=== PATIENT | male | born 1940 | race Caucasian/White ===

== ENCOUNTER 2016-10-17 10:34 | Inpatient (IN) | payer MEDICARE, BC ==
[~2016-10-17] VITALS: Ht 175.3 cm; Wt 76.9 kg
[2016-10-17] MEDS ORDERED: SOD CHLORIDE 0.9% 1,000 ML IV STA (11:26)
[2016-10-17] MEDS ORDERED: HYDROmorphONE 1 MG/ML SYG IV STA (11:26)
[2016-10-17] MEDS ORDERED: ONDANSETRON 4 MG INJ IV STA (11:26)
[2016-10-17 12:01] LABS: ADD SCAN DIFF NO
[2016-10-17 12:09] LABS: ABNORMAL IP MESSAGE 1; HEMATOCRIT 29.5 % (42.0-52.0); HEMOGLOBIN 9.6 g/dl (14.0-18.0); MEAN CORPUSCULAR HEMOGLOBIN 30.4 pg (29.0-33.0); MEAN CORPUSCULAR HGB CONC 32.5 g/dl (32.0-37.0); MEAN CORPUSCULAR VOLUME 93.4 fl (82.0-101.0); MEAN PLATELET VOLUME 10.3 fl (7.4-10.4); PLATELET COUNT 132 10^3/UL (140-415); RED BLOOD COUNT 3.16 10^6/ul (4.70-6.10); RED CELL DISTRIBUTION WIDTH 15.2 % (11.5-14.5)
[2016-10-17 12:22] LABS: ALBUMIN 4.4 g/dl (3.3-4.9); ALBUMIN/GLOBULIN RATIO 2.09; BILIRUBIN,INDIRECT 0.6 mg/dl (0-1.1); BILIRUBIN,TOTAL 0.6 mg/dl (0.2-1.3); CALCIUM 8.2 mg/dl (8.4-10.2); CREATININE 1.54 mg/dl (0.61-1.24); POTASSIUM 4.7 mmol/L (3.5-5.1); TOTAL PROTEIN 6.5 g/dl (6.1-8.1)
--- NOTE | 2016-10-17 13:09 | RADRPT ---
PROCEDURE: CT abdomen and pelvis without contrast. CLINICAL INDICATION: Abdominal Pain TECHNIQUE: CT scan of the abdomen and pelvis without contrast was performed and is reconstructed a t 2.5 mm contiguous axial intervals from the dome of the diaphragm to the inferior pubic rami.. The patient was scanned without intravenous contrast. Sagittal and coronal reformatted images were obt ained from the axial source images. The calculated radiation dose measures 853 mGy centimeters. The CTDI measures 814 mGy. COMPARISON: None. FINDINGS: The lung bases are clear of any infiltrate or nodule. No effusion is seen. There are coronary arter y calcifications. Noted is retrocrural adenopathy. The liver is of normal size, contour and attenuation with no mass or ductal dilatation. No gallston es are visualized. No splenic or adrenal abnormalities present. noted is peripancreatic adenopathy . There is a questionable mass in the tail of the pancreas on this limited precontrast exam. Kidneys are of normal size and contour. No calculus or masses seen. There is mild to moderate rig ht hydroureter nephrosis. The ureter appears to occlude on the superior aspect of the pelvis. No s tone is seen. The left ureter is of normal course and caliber with no stone. No bladder mass or st one is present. Prostate and seminal vesicles appear normal. There is no aneurysm. Calcified plaque is seen in the aorta and iliac arteries. Retroperitoneal ad enopathy is present. No bowel mass or obstruction is present. The appendix is normal. No phlegmon, ascites or pneumop eritoneum is visualized. A sub centimeter faint sclerotic lesion is seen in the posterior medial right ilium. Noted is ill-d efined sclerosis in the right L3 vertebral body. Cortical margins are intact. No fractures are vis ualized. Patient is status post left inguinal herniorrhaphy. IMPRESSION: Retrocrural, retroperitoneal and peripancreatic adenopathy. Question metastatic disease versus lymp briseyda. These nodes are amendable to CT guided biopsy if clinically indicated. Question mass tail of pancreas. Consider repeat thin section postcontrast CT for more definitive di agnosis. Mild to moderate right hydroureter nephrosis with ureteral obstruction superior pelvis. No stones v isualized. Consider postcontrast imaging for more definitive diagnosis. Ill-defined sclerosis L3 vertebral body. This is indeterminate for metastatic disease. Vascular calcifications. Status post left inguinal herniorrhaphy. .Ant Reyes MD, MD Date Time Electronically viewed and signed by .Ant Reyes MD, on 10/17/2016 13:08 .A/
[2016-10-17 13:13] LABS: ADD UMIC YES; UR BILIRUBIN (Dip) NEGATIVE (NEGATIVE); UR BLOOD (Dip) 2+ (NEGATIVE); UR CLARITY CLEAR (CLEAR); UR COLOR LT. YELLOW (YELLOW); UR GLUCOSE (Dip) NEGATIVE (NEGATIVE); UR KETONES (Dip) NEGATIVE (NEGATIVE); UR LEUKOCYTE ESTERASE (Dip) NEGATIVE (NEGATIVE); UR NITRITE (Dip) NEGATIVE (NEGATIVE); UR TOTAL PROTEIN (Dip) 1+ (NEGATIVE); UR UROBILINOGEN (Dip) 0.2 E.U./dL (0.1-1.0)
[2016-10-17] MEDS ORDERED: ATOR40TA68 PO (13:54)
[2016-10-17] MEDS ORDERED: AMLO5TAB4 PO (13:54)
[2016-10-17] MEDS ORDERED: ASPI-664 PO (13:56)
[2016-10-17] MEDS ORDERED: SERT-165 PO (13:56)
--- NOTE | 2016-10-17 14:00 | ERD ---
ER Documentation Chief Complaint Date/Time DATE: 10/17/16 TIME: 13:59 Chief Complaint ap x 1 week on chemo, had last one on monday HPI This is a 76-year-old male with a history of prostate cancer currently undergoing chemotherapy. His last chemotherapy was last week. The patient states that over the past 6 or 7 days the patient had a gradual worsening of pain in the mid abdominal epigastric region is worse after eating at times. He says the pain is constantly there and is starting to spread across the entire abdomen. He has no nausea vomiting but does have constipation no fever no back pain no dysuria no hematuria. Pain is described as crampy and dull at times. ROS All systems reviewed and are negative except as per history of present illness. Medications Home Meds Reported Medications Aspirin* (Aspirin* EC) 81 Mg Tablet.dr, 81 MG PO DAILY, TAB 10/17/16 Sertraline Hcl* (Sertraline Hcl*) 100 Mg Tablet, 100 MG PO DAILY, #30 TAB 10/17/16 Atorvastatin* (Atorvastatin*) 40 Mg Tablet, 40 MG PO QHS, #30 TAB 10/17/16 Amlodipine Besylate* (Norvasc*) 5 Mg Tablet, 5 MG PO DAILY, TAB 10/17/16 Allergies Allergies: Coded Allergies: No Known Allergy (Unverified , 10/17/16) PMhx/Soc Medical and Surgical Hx: pt denies Medical Hx, pt denies Surgical Hx Hx Miscellaneous Medical Probl: Yes (prostate cancer) Hx Alcohol Use: No Hx Substance Use: No Hx Tobacco Use: No Smoking Status: Unknown if ever smoked FmHx Family History: No coronary disease Physical Exam Vitals Vital Signs Date Time Temp Pulse Resp B/P Pulse Ox O2 Delivery O2 Flow Rate FiO2 10/17/16 13:06 80 17 151/72 100 Room Air 10/17/16 10:37 98.1 94 18 102/57 99 Physical Exam Const: Well-developed, well-nourished Head: Atraumatic, normocephalic Eyes: Normal Conjunctiva, PERRLA, EOMI, normal sclera, no nystagmus ENT: Normal External Ears, Nose and Mouth, moist mucus membranes. Neck: Full range of motion. No meningismus, no lymphadenopathy. Resp: Clear to auscultation bilaterally, no wheezing, rhonchi, rales Cardio: Regular rate and rhythm, no murmurs, S1 S2 present Abd: Soft, diffuse mild tenderness no rebound non distended. Normal bowel sounds, no guarding or rebound, no pulsitile abdominal masses or bruits Skin: No petechiae or rashes, no ecchymosis , no maculopapular rash Back: No midline or flank tenderness Ext: No cyanosis, or edema, FROM x 4, normal inspection, neurovascularly intact x 4 Neur: Awake and alert, STR 5/5 x 4, sensation intact x 4, no focal findings, cerebellum intact Psych: Normal Mood and Affect Result Diagram: 10/17/16 1141 10/17/16 1141 Results 24 hrs Laboratory Tests Test 10/17/16 11:41 10/17/16 13:00 White Blood Count 1.810^3/ul Red Blood Count 3.1610^6/ul Hemoglobin 9.6g/dl Hematocrit 29.5% Mean Corpuscular Volume 93.4fl Mean Corpuscular Hemoglobin 30.4pg Mean Corpuscular Hemoglobin Concent 32.5g/dl Red Cell Distribution Width 15.2% Platelet Count 05185^3/UL Mean Platelet Volume 10.3fl Neutrophils % 42.0% Band Neutrophils % 9.0% Lymphocytes % 34.0% Reactive Lymphocytes % 5.0% Monocytes % 7.0% Eosinophils % 2.0% Metamyelocytes % 1.0% Neutrophils # 0.810^3/ul Lymphocytes # 0.610^3/ul Monocytes # 0.110^3/ul Eosinophils # 0.010^3/ul Metamyelocytes # 0.0 Sodium Level 144mmol/L Potassium Level 4.7mmol/L Chloride Level 109mmol/L Carbon Dioxide Level 27mmol/L Anion Gap 13 Blood Urea Nitrogen 29mg/dl Creatinine 1.54mg/dl Glucose Level 121mg/dl Calcium Level 8.2mg/dl Total Bilirubin 0.6mg/dl Direct Bilirubin 0.00mg/dl Indirect Bilirubin 0.6mg/dl Aspartate Amino Transf (AST/SGOT) 19IU/L Alanine Aminotransferase (ALT/SGPT) 30IU/L Alkaline Phosphatase 106IU/L Total Protein 6.5g/dl Albumin 4.4g/dl Globulin 2.10g/dl Albumin/Globulin Ratio 2.09 Lipase 88U/L Urine Color LT. YELLOW Urine Clarity CLEAR Urine pH 7.0 Urine Specific [place] 1.010 Urine Ketones NEGATIVE Urine Nitrite NEGATIVE Urine Bilirubin NEGATIVE Urine Urobilinogen 0.2 E.U./dL Urine Leukocyte Esterase NEGATIVE Urine Microscopic RBC 5-10/HPF Urine Microscopic WBC 0-2/HPF Urine Hemoglobin 2+ Urine Glucose NEGATIVE% Urine Total Protein 1+ Current Medications Medications (Trade) Dose Ordered Sig/Abida Route PRN Reason Start Time Stop Time Status Last Admin Dose Admin Sodium Chloride (NS) 1,000 ml @ 1,000 mls/hr Q1H STAT IV 10/17/16 11:26 10/17/16 12:25 DC 10/17/16 11:58 Hydromorphone HCl (Dilaudid) 1 mg ONCE STAT IV 10/17/16 11:26 10/17/16 11:27 DC 10/17/16 11:58 Ondansetron HCl (Zofran Inj) 4 mg ONCE STAT IV 10/17/16 11:26 10/17/16 11:27 DC 10/17/16 11:58 Procedures/MDM PROCEDURE: CT abdomen and pelvis without contrast. CLINICAL INDICATION: Abdominal Pain TECHNIQUE: CT scan of the abdomen and pelvis without contrast was performed and is reconstructed at 2.5 mm contiguous axial intervals from the dome of the diaphragm to the inferior pubic rami.. The patient was scanned without intravenous contrast. Sagittal and coronal reformatted images were obtained from the axial source images. The calculated radiation dose measures 853 mGy centimeters. The CTDI measures 814 mGy. COMPARISON: None. FINDINGS: The lung bases are clear of any infiltrate or nodule. No effusion is seen. There are coronary artery calcifications. Noted is retrocrural adenopathy. The liver is of normal size, contour and attenuation with no mass or ductal dilatation. No gallstones are visualized. No splenic or adrenal abnormalities present. noted is peripancreatic adenopathy. There is a questionable mass in the tail of the pancreas on this limited precontrast exam. Kidneys are of normal size and contour. No calculus or masses seen. There is mild to moderate right hydroureter nephrosis. The ureter appears to occlude on the superior aspect of the pelvis. No stone is seen. The left ureter is of normal course and caliber with no stone. No bladder mass or stone is present. Prostate and seminal vesicles appear normal. There is no aneurysm. Calcified plaque is seen in the aorta and iliac arteries. Retroperitoneal adenopathy is present. No bowel mass or obstruction is present. The appendix is normal. No phlegmon , ascites or pneumoperitoneum is visualized. A sub centimeter faint sclerotic lesion is seen in the posterior medial right ilium. Noted is ill-defined sclerosis in the right L3 vertebral body. Cortical margins are intact. No fractures are visualized. Patient is status post left inguinal herniorrhaphy. IMPRESSION: Retrocrural, retroperitoneal and peripancreatic adenopathy. Question metastatic disease versus lymphoma. These nodes are amendable to CT guided biopsy if clinically indicated. Question mass tail of pancreas. Consider repeat thin section postcontrast CT for more definitive diagnosis. Mild to moderate right hydroureter nephrosis with ureteral obstruction superior pelvis. No stones visualized. Consider postcontrast imaging for more definitive diagnosis. Ill-defined sclerosis L3 vertebral body. This is indeterminate for metastatic disease. Vascular calcifications. Status post left inguinal herniorrhaphy. .Ant Reyes MD, MD Date Time Electronically viewed and signed by .Ant Reyes MD, MD on 10/17/2016 13: 08 .A/ CC: AVI SHELTON DO Spoke with Dr. Mathias of panel. The patient will be admitted due to absolute neutrophil count of 800. And is a infectious risk. We will admit for neutropenia precautions and to possibly get some Neupogen etc. Abdominal pain is likely due to the diffuse adenopathy Departure Diagnosis: Primary Impression: Neutropenia Neutropenia type: secondary to cancer chemotherapy Qualified Code: D70.1 - Chemotherapy-induced neutropenia Additional Impression: Abdominal pain Abdominal location: generalized Qualified Code: R10.84 - Generalized abdominal pain Condition: Stable AVI SHELTON DO Oct 17, 2016 14:00
[2016-10-17 14:40] LABS: LYMPHOCYTES # 0.6 10^3/ul (0.8-2.9); MONOCYTE # 0.1 10^3/ul (0.3-0.9); NEUTROPHIL # 0.8 10^3/ul (1.6-7.5)
[2016-10-17] MEDS ORDERED: ACETAMINOPHEN 325 MG TAB PO PRN ×2 (15:00→17:00)
[2016-10-17] MEDS ORDERED: ONDANSETRON 4 MG INJ IV PRN ×2 (15:00→17:00)
[2016-10-17 16:14] LABS: WHITE BLOOD COUNT 1.8 10^3/ul (4.8-10.8)
[2016-10-17 16:49] VITALS: Ht 175.3 cm; Wt 76.9 kg
[2016-10-17 16:50] VITALS: BP 159/70; PULSE 84
[2016-10-17] MEDS ORDERED: NACL 0.9% 3 ML SYG IV SCH (17:00)
[2016-10-17] MEDS ORDERED: FILGRASTIM 300 MCG INJ SC ONE (17:00)
[2016-10-17] MEDS ORDERED: hydrALAzine 20 MG INJ IV PRN (17:00)
[2016-10-17] MEDS ORDERED: BISACODYL (EC) 5 MG TAB PO PRN (17:00)
[2016-10-17] MEDS ORDERED: HYDROCODONE/APAP (5/325) TAB PO PRN (17:00)
[2016-10-17] MEDS ORDERED: MAGNESIUM HYDROXIDE 30ML CUP PO PRN (17:00)
[2016-10-17] MEDS: SOD CHLORIDE 0.9% 1,000 ML IV SCH (17:39)
--- NOTE | 2016-10-17 18:33 | HP ---
DATE OF ADMISSION: 10/17/2016 TIME OF EVALUATION: 1613. REASON FOR ADMISSION: Abdominal pain and pancytopenia. CONSULTANTS: ANGEL CHACKO MD, Urology. HISTORY OF PRESENT ILLNESS: This is a 76-year-old male with past medical history of essential hypertension, dyslipidemia, CAD status post coronary artery stenting and metastatic prostate cancer status post radiation therapy, currently undergoing chemotherapy with Dr. Moe Green in [place]. The patient got his last chemotherapy on 10/14/2016. The patient verbalized that he has been having abdominal pain for the past 10 days that became worse over the past 24 hours. The patient verbalized that he has not been taking any routine pain medications at home. The patient verbalized the pain location in the epigastric region and has been worse after eating at times. The patient also verbalized the pain is spreading all over the abdomen. The patient denied any vomiting. However, he complained of some nausea. The patient has been complaining of constipation. He denied any dysuria, hematuria. The patient denied any fevers or chills. The patient denied any urinary hesitancy or urgency. In the emergency room, the patient was noticed to have pancytopenia with WBC 1.8 , neutrophil count of only 0.8. The patient was noticed to have BUN and creatinine of 29 and 1.54 respectively. The patient's urinalysis showed 2+ hemoglobin and 1+ protein. The patient's abdominal CT scan showed retrocrural, retroperitoneal and pancreatic adenopathy with questionable pancreatic tail mass along with mild to moderate right hydroureteronephrosis with ureteral obstruction in the pelvis with no stones visualized. The patient was treated with IV analgesics, IV antiemetics along with IV fluids in the emergency room. PAST MEDICAL HISTORY: Essential hypertension, dyslipidemia, CAD status post coronary artery stenting and depression. PAST SURGICAL HISTORY: Denies, although the patient had a CT scan that shows status post left inguinal herniorrhaphy. HOME MEDICATIONS 1. Aspirin 81 mg p.o. daily. 2. Sertraline 100 mg p.o. daily. 3. Atorvastatin 40 mg p.o. at bedtime. 4. Amlodipine 5 mg p.o. daily. ALLERGIES: NO KNOWN DRUG ALLERGIES. SOCIAL HISTORY: The patient lives at home. Never smoker. Occasional alcohol use. Denies any drug use. REVIEW OF SYSTEMS: A 12-point review of systems were made and review of systems was negative other than what is mentioned in history of present illness. PHYSICAL EXAMINATION: VITAL SIGNS: Temperature 98.3, pulse rate 84, respiratory rate 70, blood pressure 159/70, oxygen saturation 98% on room air. GENERAL: This is a well-built, well-nourished 76-year-old male, lying in bed in no apparent distress. HEENT: Head normocephalic and atraumatic. Eyes: Anicteric sclerae. Conjunctivae clear. ENT: Nasal septum is midline. Oral mucosa is moist. NECK: Supple. No JVD noticed. RESPIRATORY: Bilaterally clear to auscultation. No adventitious breath sounds heard. No use of accessory muscles of respiration. CARDIAC: Regular rate and rhythm. S1, S2 heard. ABDOMEN: Soft. Diffuse tenderness. No rebound tenderness or guarding. Bowel sounds hypoactive in all 4 quadrants. GENITOURINARY: Deferred. EXTREMITIES: No cyanosis, no clubbing, no edema. Peripheral pulses palpable. NEUROLOGIC: The patient is awake, alert and oriented. Cranial nerves are grossly intact. LABORATORY AND DIAGNOSTIC DATA: WBC 1.8, hemoglobin 9.6, hematocrit 29.5, platelet count 132, bands 9%. Sodium 144, potassium 84.0, chloride 100, carbon dioxide 27, anion gap 13, BUN 29, creatinine 1.54, glucose 121, calcium 8.2, AST 19, ALT 30, alkaline phosphatase 106. Urinalysis: Urine nitrite negative, urine leukocyte esterase negative, urine hemoglobin 2+. Urine total protein 1+. CT scan of the abdomen and pelvis. Retrocrural, retroperitoneal and peripancreatic adenopathy. Questionable mass in the tail of the pancreas. Mild to moderate right hydroureter, nephrosis with ureteral obstruction. In the patient's pelvis, no stones visualized. Ill-defined sclerosis of L3 vertebral body. Vascular calcifications. Status post left inguinal herniorrhaphy. IMPRESSION: This is a 56-year-old male who came to the emergency room with a chief complaint of abdominal pain. He is currently undergoing chemotherapy for prostate cancer. He was found evidence of pancytopenia, along with acute kidney injury and mild to moderate right ureteral obstruction. He will be admitted here for further treatment and evaluation. ASSESSMENT AND PLAN: 1. Abdominal pain. Etiology unclear. Probably a combination of metastatic prostate cancer along with right ureteral obstruction evident on CT scan. The patient verbalized that he has not been on any routine pain medications at home. Hence, it is suspected that the right ureteral obstruction could be contributing to the patient's pain. The patient will be seen and evaluated by Urology. The patient was provided with adequate pain control. 2. Nonoliguric kidney injury. Unknown baseline creatinine. Most probably postobstructive secondary to ureteral obstruction evident on abdominal CT scan. The patient will be adequately hydrated. Nephrotoxic drugs will be avoided. 3. History of prostate cancer. The patient currently undergoing chemotherapy with Dr. Moe Green, phone number [phone]. 4. Pancytopenia with underlying severe neutropenia. The patient will be kept on reverse isolation. The patient will be provided with a single dose of Neupogen (colony stimulating factor). 6. Essential hypertension. The patient will be maintained on antihypertensives. The patient will also be started on p.r.n. antihypertensives for any systolic blood pressure readings greater than 160 mmHg. 7. Coronary artery disease, status post coronary artery stenting 8 years ago. The patient is currently on aspirin and statin. Plan. The patient will be admitted to inpatient medical/surgical floor. The patient will be started on a low cholesterol diet. The patient will be started on DVT prophylaxis and gastrointestinal prophylaxis. The patient will remain a FULL CODE. Activities will be as tolerated. The rest of the patient's management will be based on the clinical course, the results of diagnostic studies, and inputs from consultants. Based on the patient's clinical presentation, he most probably requires at least 1 midnight's stay for further management and evaluation of his clinical presentation. The case and management of this patient was fully discussed with Dr. Ortiz. ANDRESSA ORTIZ MD, AM/RICHA Conf#: [id number] DID#: [id number] TERESA
[2016-10-17] MEDS: HYDROmorphONE 1 MG/ML SYG IV PRN (19:03)
[2016-10-17] MEDS: POLYETHYLENE GLYCOL 17 GM PACKET PO SCH (20:48)
[2016-10-17] MEDS: FAMOTIDINE 20 MG TAB PO SCH (20:49)
[2016-10-17] MEDS: ATORVASTATIN 40 MG TAB PO SCH (20:51)
[2016-10-17] MEDS: HEPARIN 5,000 UNIT/0.5 ML VIAL SC SCH (20:51)
--- NOTE | 2016-10-17 21:20 | CONS ---
DATE OF ADMISSION: 10/17/2016 DATE OF CONSULTATION: 10/17/2016 REQUESTING PHYSICIAN: Dr. Ortiz and Osvaldo Olea NP HISTORY OF PRESENT ILLNESS: This is a nice 76-year-old male who unfortunately had metastatic prosta te cancer and presented to the emergency room at [facility] because of abdominal p ain and nausea, but there was no vomiting. A CT scan of the abdomen and pelvis that showed retroper itoneal adenopathy and right hydronephrosis with also right hydroureter in the proximal ureter. The distal ureter is not dilated. Therefore, a urological consultation was requested. The patient sta chencho that he had a prostate cancer diagnosed about 3 to [address] Ramos[address] Then at that ti nv, he was treated with radiation therapy at [facility]. He did well; however, he has had multiple CAT scans after that and, according to him about 6 months ago, he had a CAT scan which was negative, but 3 months ago started showing cancer in the bones and the lymph nodes. Therefore, he w as started on chemotherapy. He is on Taxotere 198 mg and also on dexamethasone. The patient just h ad his chemotherapy on 10/14/2016, that is 3 days ago, and started having abdominal pain for the pas t 10 days and that pain became worse over the past 24 hours. That is why he came into the emergency room here. The patient also states that he is voiding well now, but [place] 3 [place] started having gross hematuria there and he went to [facility]. There, he had a CT scan that also showed retroperitoneal adenopathy and metas tatic cancer. Also showed a mass in the bladder that turned out to be a hematoma. He underwent a c ystoscopy, evacuation of the hematoma, and continuous bladder irrigation and bladder fulguration. A fter that, the Hoffman catheter was removed and he has been urinating well and there is no more hematu ok. He also was anemic and he received 3 units of blood at that time. At the present, he does hav e nocturia 6 to 7 times during the night and during the day he voids every 2 to 3 hours, depending o n how much he drinks. The patient states that his last PSA was about 490. PAST MEDICAL HISTORY: Includes a history of hypertension, coronary artery disease. He has 3 amezcua ry stents. He has a history of dyslipidemia and depression. PAST SURGICAL HISTORY: Left inguinal herniorrhaphy. HOME MEDICATION: That he has been on include: 1. Aspirin 81 mg. 2. Sertraline 100 mg. 3. Atorvastatin 40 mg. 4. Amlodipine 5 mg daily. 5. He also has had the recent chemotherapy with dexamethasone. 6. Taxotere. ALLERGIES: THE PATIENT HAS NO KNOWN DRUG ALLERGIES. SOCIAL HISTORY: Does not smoke, does not abuse any drugs. He does drink occasionally. REVIEW OF SYSTEMS: Negative other than what is mentioned above, the 12-point system review has been negative. PHYSICAL EXAMINATION GENERAL: Reveals a pleasant 76-year-old male. He weighs 76.9 kg. He is 69 inches tall. VITAL SIGNS: Temperature is 98.3, pulse 84, respirations 17, blood pressure 159/70. ABDOMEN: Soft, even though he does complain of generalized abdominal pain, but mostly in the upper part of the abdomen. There is no abdominal mass palpable. EXTERNAL GENITALIA: Normal. RECTAL: Revealed a flat and hard prostate. EXTREMITIES: Reveal no edema. LABORATORY DATA: CBC shows a white count of 1.8, hemoglobin 9.6, hematocrit 29.5. The BUN is 29, c reatinine 1.54, sodium 144, potassium 4.7, chloride 109, CO2 of 27. The PSA done today was reported as 362. IMPRESSION: 1. Metastatic prostate cancer and abdominal pain. The patient has retroperitoneal adenopathy and t hat could cause some abdominal pain as well. 2. He is leukopenic and therefore that most likely related to his chemotherapy. Also he was anemic 3 weeks ago and received 3 units of blood transfusions. 3. The hydronephrosis is something that is to be watched. It was reported on the CT scan when he w as at [facility]. This could be secondary to retroperitoneal adenopathy squeezing around the uret er. One is to consider cystoscopy and put a JJ stent for him. That also could trigger some bladder bleeding, especially that he had the bladder bleeding 3 weeks ago and ended in the hospital because of that. Therefore, we shall watch the hydronephrosis for now and give him pain medications. I al so recommend to have an oncology consultation to check on his leukopenia and whether the chemotherap y that he was given could have any side effect to cause him abdominal pain. Dictated By: ANGEL CHACKO MD BB/RICHA Conf#: [id number] DID#: [id number] CC: OSVALDO OLEA NP; DARRELL ORTIZ MD;*End*
[2016-10-17 21:22] VITALS: BP 177/97; RESP 18
[2016-10-18 05:19] LABS: ADD SCAN DIFF NO
[2016-10-18 05:21] LABS: ABNORMAL IP MESSAGE 1; HEMATOCRIT 27.2 % (42.0-52.0); HEMOGLOBIN 8.6 g/dl (14.0-18.0); MEAN CORPUSCULAR HEMOGLOBIN 29.4 pg (29.0-33.0); MEAN CORPUSCULAR HGB CONC 31.6 g/dl (32.0-37.0); MEAN CORPUSCULAR VOLUME 92.8 fl (82.0-101.0); MEAN PLATELET VOLUME 10.9 fl (7.4-10.4); PLATELET COUNT 113 10^3/UL (140-415); RED BLOOD COUNT 2.93 10^6/ul (4.70-6.10); RED CELL DISTRIBUTION WIDTH 15.2 % (11.5-14.5); WHITE BLOOD COUNT 1.6 10^3/ul (4.8-10.8)
[2016-10-18 05:52] LABS: MAGNESIUM 2.2 mg/dl (1.7-2.5)
[2016-10-18 05:54] LABS: ALBUMIN 3.7 g/dl (3.3-4.9); ALBUMIN/GLOBULIN RATIO 1.42; BILIRUBIN,INDIRECT 0.6 mg/dl (0-1.1); BILIRUBIN,TOTAL 0.6 mg/dl (0.2-1.3); CALCIUM 7.9 mg/dl (8.4-10.2); CREATININE 1.36 mg/dl (0.61-1.24); POTASSIUM 4.6 mmol/L (3.5-5.1); TOTAL PROTEIN 6.3 g/dl (6.1-8.1)
[2016-10-18 06:28] LABS: THYROID STIMULATING HORMONE 1.05 MIU/L (0.465-4.680)
[2016-10-18 07:35] VITALS: BP 156/66; RESP 18
[2016-10-18] MEDS: ASPIRIN (EC) 81 MG TAB PO SCH (09:13)
[2016-10-18] MEDS: AMLODIPINE 5 MG TAB PO SCH (09:13)
[2016-10-18] MEDS: SERTRALINE 100 MG TAB PO SCH (09:13)
[2016-10-18] MEDS: POLYETHYLENE GLYCOL 17 GM PACKET PO SCH ×2 (09:13→20:51)
[2016-10-18] MEDS: FAMOTIDINE 20 MG TAB PO SCH ×2 (09:13→20:51)
[2016-10-18] MEDS: HYDROmorphONE 1 MG/ML SYG IV PRN ×2 (09:14→18:30)
[2016-10-18] MEDS: HEPARIN 5,000 UNIT/0.5 ML VIAL SC SCH ×2 (09:16→20:51)
[2016-10-18] MEDS: SOD CHLORIDE 0.9% 1,000 ML IV SCH (09:20)
--- NOTE | 2016-10-18 10:00 | PN ---
Date/Time of Note Date/Time of Note DATE: 10/18/16 TIME: 10:00 Assessment/Plan VTE Prophylaxis VTE Prophylaxis Intervention: heparin Lines/Catheters IV [facility]from [facility] Peripheral IV Assessment/Plan Chief Complaint/Hosp Course 1. Abdominal pain. Etiology unclear, probably a combination of metastatic prostate cancer along with right ureteral obstruction evident on CT scan. Continue pain control. Status post evaluation by urology. Will obtain gastroenterology consult. 2. Nonoliguric acute kidney injury. Unknown baseline creatinine. Most probably postobstructive secondary to ureteral obstruction evident on abdominal CT scan. The patient will be adequately hydrated. Nephrotoxic drugs will be avoided. 3. Prostate cancer. The patient currently undergoing chemotherapy with Dr. Moe Green, phone number [phone]. 4. Pancytopenia with underlying severe neutropenia. The patient will be kept on reverse isolation. Status post single dose of Neupogen (colony stimulating factor). 5. Essential hypertension. The patient will be maintained on antihypertensives. The patient will also be maintained on p.r.n. antihypertensives for any systolic blood pressure readings greater than 160 mmHg. 6. Coronary artery disease, status post coronary artery stenting 8 years ago. The patient is currently on aspirin and statin. 7. Dyslipidemia. Continue statins. 8. Normocytic, normochromic anemia. Etiology unclear. Will obtain an iron panel. 9. Neutropenic fevers. Pancultures pending. We will monitor the patient. 10. Fluids, electrolytes, and nutrition. Low-cholesterol diet. 11. DVT prophylaxis. Subcutaneous heparin. 12. Gastrointestinal prophylaxis. Histamine 2 receptor blockers. 13. Plan. Continue pain control. Continue IV hydration. Obtain gastroenterology consult. Start empiric antibiotics. Case discussed with Dr. Mathias. Problems: Subjective 24 Hr Interval Summary Free Text/Dictation Complains of abdominal pain. No bowel movements yet. Had a febrile episode last night. Exam/Review of Systems Vital Signs Vitals Vital Signs Date Time Temp Pulse Resp B/P Pulse Ox O2 Delivery O2 Flow Rate FiO2 10/18/16 07:35 99.1 82 18 156/66 97 10/17/16 16:50 Room Air Intake and Output 10/17/16 10/17/16 10/18/16 15:00 23:00 07:00 Intake Total 1000 ml 200 ml 660 ml Output Total 600 ml Balance 1000 ml 200 ml 60 ml Exam GENERAL: This is a well-built, well-nourished 76-year-old male, lying in bed in no apparent distress. HEENT: Head normocephalic and atraumatic. Eyes: Anicteric sclerae. Conjunctivae clear. ENT: Nasal septum is midline. Oral mucosa is moist. NECK: Supple. No JVD noticed. RESPIRATORY: Bilaterally clear to auscultation. No adventitious breath sounds heard. No use of accessory muscles of respiration. CARDIAC: Regular rate and rhythm. S1, S2 heard. ABDOMEN: Soft. Diffuse tenderness. No rebound tenderness or guarding. Bowel sounds hypoactive in all 4 quadrants. GENITOURINARY: Deferred. EXTREMITIES: No cyanosis, no clubbing, no edema. Peripheral pulses palpable. NEUROLOGIC: The patient is awake, alert and oriented. Cranial nerves are grossly intact. Results Result Diagram: 10/18/16 0450 10/18/16 0450 Results 24 hrs Laboratory Tests Test 10/17/16 11:41 10/17/16 13:00 10/18/16 04:50 White Blood Count 1.8 L 1.6 L Red Blood Count 3.16 L 2.93 L Hemoglobin 9.6 L 8.6 L Hematocrit 29.5 L 27.2 L Mean Corpuscular Volume 93.4 92.8 Mean Corpuscular Hemoglobin 30.4 29.4 Mean Corpuscular Hemoglobin Concent 32.5 31.6 L Red Cell Distribution Width 15.2 H 15.2 H Platelet Count 132 L 113 L Mean Platelet Volume 10.3 10.9 H Neutrophils % 42.0 Band Neutrophils % 9.0 H Lymphocytes % 34.0 Reactive Lymphocytes % 5.0 Monocytes % 7.0 Eosinophils % 2.0 Metamyelocytes % 1.0 H Neutrophils # 0.8 L Lymphocytes # 0.6 L Monocytes # 0.1 L Eosinophils # 0.0 Metamyelocytes # 0.0 Sodium Level 144 141 Potassium Level 4.7 4.6 Chloride Level 109 109 Carbon Dioxide Level 27 24 Anion Gap 13 13 Blood Urea Nitrogen 29 H 23 H Creatinine 1.54 H 1.36 H Glucose Level 121 111 Calcium Level 8.2 L 7.9 L Total Bilirubin 0.6 0.6 Direct Bilirubin 0.00 0.00 Indirect Bilirubin 0.6 0.6 Aspartate Amino Transf (AST/SGOT) 19 22 Alanine Aminotransferase (ALT/SGPT) 30 23 Alkaline Phosphatase 106 93 Total Protein 6.5 6.3 Albumin 4.4 3.7 Globulin 2.10 2.60 Albumin/Globulin Ratio 2.09 1.42 Lipase 88 Prostate Specific Antigen 362.0 H Urine Color LT. YELLOW Urine Clarity CLEAR Urine pH 7.0 Urine Specific [place] 1.010 Urine Ketones NEGATIVE Urine Nitrite NEGATIVE Urine Bilirubin NEGATIVE Urine Urobilinogen 0.2 E.U./dL Urine Leukocyte Esterase NEGATIVE Urine Microscopic RBC 5-10 Urine Microscopic WBC 0-2 Urine Hemoglobin 2+ H Urine Glucose NEGATIVE Urine Total Protein 1+ H Hemoglobin A1c 6.0 H Phosphorus Level 3.0 Magnesium Level 2.2 Triglycerides Level 197 H Cholesterol Level 146 LDL Cholesterol, Calculated 83 HDL Cholesterol 24 L Cholesterol/HDL Ratio 6.0 Thyroid Stimulating Hormone (TSH) 1.050 Free Thyroxine 1.02 Medications Medications Current Medications Sodium Chloride (NS) 1,000 ml @ 60 mls/hr [id number] IV Last administered on 10/17 17:39; Admin Dose 60 MLS/HR; Start 10/17/16 at 16:40 Ondansetron HCl (Zofran Inj) 4 mg Q6H PRN IV NAUSEA AND/OR VOMITING; Start 04/23 at 17:00 Acetaminophen (Tylenol Tab) 650 mg Q6H PRN PO PAIN LEVEL 1-3 OR FEVER Last administered on 10/17/16 19:22; Admin Dose 650 MG; Start 10/17/16 at 17:00 Acetaminophen/ Hydrocodone Bitart ([place] (5/325)) 2 tab Q6H PRN PO SEVERE PAIN LEVEL 7-10; Start 10/17/16 at 17:00 Hydromorphone HCl (Dilaudid) 0.5 mg Q4H PRN IV SEVERE PAIN LEVEL 7-10 Last administered on 10/18/16 09:14; Admin Dose 0.5 MG; Start 10/17/16 at 17:00 Magnesium Hydroxide (Milk Of Mag) 30 ml DAILY PRN PO CONSTIPATION; Start at 17:00 Bisacodyl (Dulcolax) 5 mg DAILY PRN PO CONSTIPATION; Start 10/17/16 at 17:00 Famotidine (Pepcid) 20 mg Q12 PO Last administered on 10/18/16 09:13; Admin Dose 20 MG; Start 10/17/16 at 21:00 Heparin Sodium (Porcine) (Heparin (5000 Units/0.5 ml)) 5,000 unit Q12 SC Last administered on 10/18/16 09:16; Admin Dose 5,000 UNIT; Start 10/17/16 at 21:00 Amlodipine Besylate (Norvasc) 5 mg DAILY PO Last administered on 10/18/16 09: 13; Admin Dose 5 MG; Start 10/18/16 at 09:00 Aspirin (Halfprin) 81 mg DAILY PO Last administered on 10/18/16 09:13; Admin Dose 81 MG; Start 10/18/16 at 09:00 Atorvastatin Calcium (Lipitor) 40 mg QHS PO Last administered on 10/17/16 20: 51; Admin Dose 40 MG; Start 10/17/16 at 21:00 Sertraline HCl (Zoloft) 100 mg DAILY PO Last administered on 10/18/16 09:13; Admin Dose 100 MG; Start 10/18/16 at 09:00 Hydralazine HCl (Apresoline) 10 mg Q6H PRN IV SBP>160; Start 10/17/16 at 17:00 Polyethylene Glycol (Miralax) 17 gm BID PO Last administered on 10/18/16 09:13 ; Admin Dose 17 GM; Start 10/17/16 at 21:00 ANDRESSA JERRY NP Oct 18, 2016 10:00
[2016-10-18] MEDS: CEFTRIAXONE 1 GM/50 ML (PMX) 50 ML IVPB SCH (12:07)
[2016-10-18 12:36] LABS: IRON 41 ug/dl (35-150)
[2016-10-18 12:45] LABS: TOTAL IRON BINDING CAPACITY 254 ug/dl (241-421)
[2016-10-18 13:21] LABS: LYMPHOCYTES # 0.7 10^3/ul (0.8-2.9); MONOCYTE # 0.1 10^3/ul (0.3-0.9); NEUTROPHIL # 0.6 10^3/ul (1.6-7.5)
--- NOTE | 2016-10-18 15:21 | CONS ---
Date/Time of Note Date/Time of Note DATE: 10/18/16 TIME: 14:56 Assessment/Plan Assessment/Plan Additional Assessment/Plan Assessment * Abdominal pain improving CT abdomen/pelvis Retrocrural, retroperitoneal and peripancreatic adenopathy. Question metastatic disease versus lymphoma. These nodes are amendable to CT guided biopsy if clinically indicated. Question mass tail of pancreas. Consider repeat thin section postcontrast CT for more definitive diagnosis. Mild to moderate right hydroureter nephrosis with ureteral obstruction superior pelvis. No stones visualized. Consider postcontrast imaging for more definitive diagnosis. Ill-defined sclerosis L3 vertebral body. This is indeterminate for metastatic disease Vascular calcifications * Anemia Chronic vs acute * Metastatic prostate cancer Plan * MRI abdomen * Stool for occult blood * Suggest oncology consult . . Consultation Date/Type/Reason Admit Date/Time Oct 18, 2016 at 10:21 Date of Consultation: Oct 18, 2016 Type of Consultation: Gastroenterology Reason for Consultation Abdominal pain Referring Provider: ANDRESSA JERRY NP Hx of Present Illness 76 year old male with past medical history hypertension,dyslipidemia,CAD,S/P coronary stenting,metastatic prostate cancer,s/p chemotherapy.He had chemotherapy last October,history of hematuria 3 weeks ago where he sought consult at [facility],was discharged improved.He presented in our emergency room because of severe abdominal pain which started 10 days ago with associated nausea ,but no vomiting.Pain localized at epigastric area becoming generalized which prompted consultation at our emergency room.He also been complaining of constipation,sometimes pain becoming worse after eating.He denies any hematemesis,hematochezia.Last colonoscopy was 7 years ago results were normal Emergency room course revealed pancytopenia with WBC 1.8,neutrophil count 0.8, hemoglobin 8.6,Hematocrit 27.[address] scan of abdomen/pelvis revealed Retrocrural, retroperitoneal and peripancreatic adenopathy. Question metastatic disease versus lymphoma. These nodes are amendable to CT guided biopsy if clinically indicated. Question mass tail of pancreas. Consider repeat thin section postcontrast CT for more definitive diagnosis. Mild to moderate right hydroureter nephrosis with ureteral obstruction superior pelvis. No stones visualized. Consider postcontrast imaging for more definitive diagnosis. Ill-defined sclerosis L3 vertebral body. This is indeterminate for metastatic disease. Presently,patient abdominal pain improved ,tolerating diet Constitutional: improved, no complaints Eyes: no complaints ENT: no complaints Respiratory: no complaints Cardiovascular: no complaints Gastrointestinal: pain Genitourinary: no complaints Musculoskeletal: no complaints Skin: no complaints Neurologic: no complaints Endocrine: no complaints Lymphatic: no complaints Psychological: nl mood/affect, no complaints Immunologic: no complaints Past Medical History Medical History: coronary artery disease, hypertension, renal disease, other Past Surgical History Past Surgical Hx: coronary bypass surgery Family History Significant Family History: no pertinent family hx Social History Smoking Status: Former smoker Exam/Review of Systems Vital Signs Vitals Vital Signs Date Time Temp Pulse Resp B/P Pulse Ox O2 Delivery O2 Flow Rate FiO2 10/18/16 07:35 99.1 82 18 156/66 97 10/17/16 16:50 Room Air Intake and Output 10/17/16 10/17/16 10/18/16 15:00 23:00 07:00 Intake Total 1000 ml 200 ml 660 ml Output Total 600 ml Balance 1000 ml 200 ml 60 ml Exam Constitutional: alert, oriented, well developed Psych: nl mood/affect Head: atraumatic, normocephalic Eyes: PERRL, nl conjunctiva, nl lids, nl sclera ENMT: nl nasal mucosa & septum Neck: non-tender, supple Respiratory: clear to auscultation, normal air movement Cardiovascular: nl pulses, regular rate and rhythm Gastrointestinal: nl liver, spleen, non-tender, soft Musculoskeletal: nl extremities to inspection, nl gait and stance Extremities: normal pulses Neurological: nl mental status, nl speech Skin: nl turgor, No rash or lesions Lymph: nl lymph nodes Results Result Diagram: 10/18/16 0450 10/18/16 0450 Results 24 hrs Laboratory Tests Test 10/18/16 04:50 White Blood Count 1.6 L Red Blood Count 2.93 L Hemoglobin 8.6 L Hematocrit 27.2 L Mean Corpuscular Volume 92.8 Mean Corpuscular Hemoglobin 29.4 Mean Corpuscular Hemoglobin Concent 31.6 L Red Cell Distribution Width 15.2 H Platelet Count 113 L Mean Platelet Volume 10.9 H Neutrophils % 37.0 L Band Neutrophils % 10.0 H Lymphocytes % 45.0 Monocytes % 5.0 Eosinophils % Basophils % 1.0 Metamyelocytes % 1.0 H Myelocytes % 1.0 H Neutrophils # 0.6 L Lymphocytes # 0.7 L Monocytes # 0.1 L Eosinophils # Basophils # 0.0 Metamyelocytes # 0.0 Myelocytes # 0.0 Sodium Level 141 Potassium Level 4.6 Chloride Level 109 Carbon Dioxide Level 24 Anion Gap 13 Blood Urea Nitrogen 23 H Creatinine 1.36 H Glucose Level 111 Hemoglobin A1c 6.0 H Calcium Level 7.9 L Phosphorus Level 3.0 Magnesium Level 2.2 Iron Level 41 Total Iron Binding Capacity 254 Percent Iron Saturation 16 L Ferritin 277.0 H Total Bilirubin 0.6 Direct Bilirubin 0.00 Indirect Bilirubin 0.6 Aspartate Amino Transf (AST/SGOT) 22 Alanine Aminotransferase (ALT/SGPT) 23 Alkaline Phosphatase 93 Total Protein 6.3 Albumin 3.7 Globulin 2.60 Albumin/Globulin Ratio 1.42 Triglycerides Level 197 H Cholesterol Level 146 LDL Cholesterol, Calculated 83 HDL Cholesterol 24 L Cholesterol/HDL Ratio 6.0 Thyroid Stimulating Hormone (TSH) 1.050 Free Thyroxine 1.02 Medications Medications Current Medications Sodium Chloride (NS) 1,000 ml @ 60 mls/hr [id number] IV Last administered on 10/17 17:39; Admin Dose 60 MLS/HR; Start 10/17/16 at 16:40 Ondansetron HCl (Zofran Inj) 4 mg Q6H PRN IV NAUSEA AND/OR VOMITING; Start 04/23 at 17:00 Acetaminophen (Tylenol Tab) 650 mg Q6H PRN PO PAIN LEVEL 1-3 OR FEVER Last administered on 10/17/16 19:22; Admin Dose 650 MG; Start 10/17/16 at 17:00 Acetaminophen/ Hydrocodone Bitart ([place] (5/325)) 2 tab Q6H PRN PO SEVERE PAIN LEVEL 7-10; Start 10/17/16 at 17:00 Hydromorphone HCl (Dilaudid) 0.5 mg Q4H PRN IV SEVERE PAIN LEVEL 7-10 Last administered on 10/18/16 09:14; Admin Dose 0.5 MG; Start 10/17/16 at 17:00 Magnesium Hydroxide (Milk Of Mag) 30 ml DAILY PRN PO CONSTIPATION; Start at 17:00 Bisacodyl (Dulcolax) 5 mg DAILY PRN PO CONSTIPATION; Start 10/17/16 at 17:00 Famotidine (Pepcid) 20 mg Q12 PO Last administered on 10/18/16 09:13; Admin Dose 20 MG; Start 10/17/16 at 21:00 Heparin Sodium (Porcine) (Heparin (5000 Units/0.5 ml)) 5,000 unit Q12 SC Last administered on 10/18/16 09:16; Admin Dose 5,000 UNIT; Start 10/17/16 at 21:00 Amlodipine Besylate (Norvasc) 5 mg DAILY PO Last administered on 10/18/16 09: 13; Admin Dose 5 MG; Start 10/18/16 at 09:00 Aspirin (Halfprin) 81 mg DAILY PO Last administered on 10/18/16 09:13; Admin Dose 81 MG; Start 10/18/16 at 09:00 Atorvastatin Calcium (Lipitor) 40 mg QHS PO Last administered on 10/17/16 20: 51; Admin Dose 40 MG; Start 10/17/16 at 21:00 Sertraline HCl (Zoloft) 100 mg DAILY PO Last administered on 10/18/16 09:13; Admin Dose 100 MG; Start 10/18/16 at 09:00 Hydralazine HCl (Apresoline) 10 mg Q6H PRN IV SBP>160; Start 10/17/16 at 17:00 Polyethylene Glycol 17 gm 17 gm BID PO Last administered on 10/18/16 09:13; Admin Dose 17 GM; Start 10/17/16 at 21:00 Ceftriaxone Sodium (Rocephin) 50 ml @ 100 mls/hr Q24H IVPB Last administered on 10/18/16 12:07; Admin Dose 100 MLS/HR; Start 10/18/16 at 10:30 JULIO SUBRAMANIAN MD Oct 18, 2016 15:07
[2016-10-18] MEDS ORDERED: LORAZEPAM 0.5 MG TAB PO PRN (15:30)
[2016-10-18] MEDS ORDERED: BISACODYL (EC) 5 MG TAB PO ONE (16:00)
--- NOTE | 2016-10-18 16:08 | RADRPT ---
Vent Rate: 78 bpm RR Interval: 0 msec NE Interval: 120 msec QRS Duration: 70 msec QT Interval: 410 msec QTC Interval: 467 msec P-R-T [place]: 68 - 33 - 54 degrees Sinus rhythm with premature atrial complexes Nonspecific T wave abnormality Prolonged QT Abnormal ECG Electronically Signed By: Roman Hernandez [id number]
[2016-10-18] MEDS ORDERED: MAGNESIUM CITRATE 300 ML BTL PO ONE (17:30)
[2016-10-18] MEDS ORDERED: POLYETHYLENE GLYCOL 3350 119 GM POWDER PO ONE (18:30)
[2016-10-18 20:13] VITALS: BP 131/67; RESP 20
[2016-10-18] MEDS: ATORVASTATIN 40 MG TAB PO SCH (20:50)
[2016-10-18] MEDS: LACTULOSE 30ML CUP PO SCH ×2 (21:51→23:58)
--- NOTE | 2016-10-18 23:59 | RADRPT ---
PROCEDURE: MR Abdomen without contrast. CLINICAL INDICATION: Neutropenia, abdominal pain, pancreatic mass, metastatic prostate carcinoma TECHNIQUE: MRI abdomen without contrast including MRCP was performed on the a high-resolution, hig h Alylssa field strength scanner. Patient was examined without IV contrast. Images were reviewed on a high-resolution PACS workstation. COMPARISON: CT abdomen pelvis without contrast of 10/17/2016 FINDINGS: There is splenic artery adjacent to the tail of pancreas. No definite mass is seen in the region of the tail of the pancreas. There is right retrocrural, portacaval and retroperitoneal adenopathy in left periaortic, retrocaval, aortocaval regions consistent with metastatic disease. Less than 1 cm short axis lymph nodes are seen in the gastrohepatic ligament and peripancreatic regions as well an d metastases is suspected. There is mild to moderate right hydronephrosis. No abnormality is seen in the liver, gallbladder, spleen, adrenals. Likely 5 mm cyst in the mid left kidney. No imaging f ollow-up of this is recommended. 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 No biliary dilatation or choledocholithiasis is seen. No abnormality of the pancreatic d uct is seen. Small hiatal hernia. IMPRESSION: There is splenic artery adjacent to the tail of pancreas. No definite mass is seen in the region of the tail of the pancreas. There is right retrocrural, portacaval and retroperitoneal adenopathy in left periaortic, retrocaval, aortocaval regions consistent with metastatic disease. Less than 1 cm short axis lymph nodes are seen in the gastrohepatic ligament and peripancreatic regions as well an d metastases is suspected. There is mild to moderate right hydronephrosis which appears to be secon june to the adenopathy. 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 Small hiatal hernia. Please see above. RPTAT: HJES .Krunal Copeland MD, Date Time Electronically viewed and signed by .Krunal Copeland MD, MD on 10/18/2016 23:58 .S/
[2016-10-19] MEDS: LACTULOSE 30ML CUP PO SCH ×3 (02:11→06:10)
[2016-10-19] MEDS: SOD CHLORIDE 0.9% 1,000 ML IV SCH ×3 (02:13→21:19)
[2016-10-19 05:59] LABS: ADD SCAN DIFF NO
[2016-10-19] MEDS ORDERED: POLYETHYLENE GLYCOL 3350 119 GM POWDER PO ONE (06:00)
[2016-10-19 06:03] LABS: ABNORMAL IP MESSAGE 1; HEMATOCRIT 29.9 % (42.0-52.0); HEMOGLOBIN 9.9 g/dl (14.0-18.0); MEAN CORPUSCULAR HEMOGLOBIN 30.7 pg (29.0-33.0); MEAN CORPUSCULAR HGB CONC 33.1 g/dl (32.0-37.0); MEAN CORPUSCULAR VOLUME 92.6 fl (82.0-101.0); MEAN PLATELET VOLUME 11.4 fl (7.4-10.4); PLATELET COUNT 137 10^3/UL (140-415); RED BLOOD COUNT 3.23 10^6/ul (4.70-6.10); RED CELL DISTRIBUTION WIDTH 14.9 % (11.5-14.5)
[2016-10-19 06:47] LABS: CREATINE KINASE 23 IU/L (23-200)
[2016-10-19 06:55] LABS: CK-MB < 0.22 ng/ml (0.0-2.4); TROPONIN-I < 0.012 ng/ml (0.00-0.12)
[2016-10-19 06:56] LABS: CALCIUM 8.7 mg/dl (8.4-10.2); CREATININE 1.46 mg/dl (0.61-1.24); POTASSIUM 4.8 mmol/L (3.5-5.1)
--- NOTE | 2016-10-19 07:49 | RADRPT ---
PROCEDURE: XR Chest. CLINICAL INDICATION: Preop TECHNIQUE: A single AP view of the chest was obtained. COMPARISON: None. FINDINGS: No focal airspace opacification, pleural effusion or pneumothorax is seen. The cardiomediastinal si lhouette is within normal limits for size. Calcifications are seen within the aortic arch. The osseo us structures are unremarkable. IMPRESSION: 1. No radiographic evidence of acute cardiopulmonary disease. 2. Aortic atherosclerosis. RPTAT: HH .Lay Snow MD, Date Time Electronically viewed and signed by .Lay Snow MD, on 10/19/2016 07:49 .G/
[2016-10-19] MEDS ORDERED: BISACODYL (EC) 5 MG TAB PO ONE (08:00)
[2016-10-19 08:04] VITALS: BP 116/57; RESP 18
[2016-10-19] MEDS: ASPIRIN (EC) 81 MG TAB PO SCH (08:26)
[2016-10-19] MEDS: AMLODIPINE 5 MG TAB PO SCH (08:26)
[2016-10-19] MEDS: FAMOTIDINE 20 MG TAB PO SCH (08:26)
[2016-10-19] MEDS: POLYETHYLENE GLYCOL 17 GM PACKET PO SCH ×2 (08:27→21:00)
[2016-10-19] MEDS: HEPARIN 5,000 UNIT/0.5 ML VIAL SC SCH ×2 (08:31→21:13)
[2016-10-19] MEDS: SERTRALINE 100 MG TAB PO SCH (08:31)
[2016-10-19 10:09] LABS: MAGNESIUM 2.5 mg/dl (1.7-2.5); PHOSPHORUS 3.3 mg/dl (2.5-4.9)
[2016-10-19 10:21] LABS: LYMPHOCYTES # 1.2 10^3/ul (0.8-2.9); MONOCYTE # 0.7 10^3/ul (0.3-0.9); NEUTROPHIL # 1.3 10^3/ul (1.6-7.5)
[2016-10-19] MEDS: CEFTRIAXONE 1 GM/50 ML (PMX) 50 ML IVPB SCH (10:45)
--- NOTE | 2016-10-19 11:25 | PN ---
Date/Time of Note Date/Time of Note DATE: 10/19/16 TIME: 11:19 Assessment/Plan VTE Prophylaxis VTE Prophylaxis Intervention: heparin Lines/Catheters IV Catheter Type (from Nrs): Peripheral IV Assessment/Plan Chief Complaint/Hosp Course Assessment and plan 1. Abdominal pain. Patient did have MRI of the abdomen that showed no definite mass seen in the region of the pancreas incidentally there is also an osteoblastic metastatic lesion in L3 vertebral body seen. There is also seen a small hiatal hernia. There is also seen a right retrocrural, portacaval and retroperitoneal adenopathy in the left periaortic, retrocaval, aortocaval regions consistent with metastatic disease. Tentative plan for EGD. Will also get oncologist to follow. 2. CKD suspect secondary to ureteral obstruction seen on CT scan of the abdomen. Continue the IV hydration. Monitor renal panel. Patient medications to be renally dosed 3. History of prostate cancer. She does follow-up with Dr. Moe Green as outpatient [phone]. Patient currently on chemotherapy. Will get inpatient oncologist to follow 4. Pancytopenia likely secondary to #3. Oncologist following 5. Essential hypertension. Continue antihypertensives and adjust as needed 6. History of CAD. Continue on aspirin and statin 7. History of dyslipidemia. Continue on statin medication 8. Neutropenic fevers. Pancultures pending at this time. Oncologist follow. Continue on antibiotics for now. DVT prophylaxis: Heparin Prophylaxis: H2 lidia Disposition and plan: GI following. Tentative plan for EGD. Oncologist also consulted. Will continue inpatient monitoring Discussed plan of care with Dr. Mathias Problems: Subjective 24 Hr Interval Summary Free Text/Dictation Reports less abdominal pain at this time Exam/Review of Systems Vital Signs Vitals Vital Signs Date Time Temp Pulse Resp B/P Pulse Ox O2 Delivery O2 Flow Rate FiO2 10/19/16 08:04 98.9 96 18 116/57 99 10/17/16 16:50 Room Air Intake and Output 10/18/16 10/18/16 10/19/16 15:00 23:00 07:00 Intake Total 50 ml 2155 ml 780 ml Output Total 520 ml Balance 50 ml 2155 ml 260 ml Exam Constitutional: alert, oriented Psych: nl mood/affect Head: normocephalic Neck: supple, No jvd Respiratory: clear to auscultation, normal air movement Cardiovascular: regular rate and rhythm Gastrointestinal: soft, tender Musculoskeletal: nl extremities to inspection Neurological: [employer] II-XII intact, nl mental status, nl speech Skin: nl turgor Results Result Diagram: 10/19/1643910/19/160 Results 24 hrs Laboratory Tests Test 10/19/16 04:40 White Blood Count 4.0 #L Red Blood Count 3.23 L Hemoglobin 9.9 L Hematocrit 29.9 L Mean Corpuscular Volume 92.6 Mean Corpuscular Hemoglobin 30.7 Mean Corpuscular Hemoglobin Concent 33.1 Red Cell Distribution Width 14.9 H Platelet Count 137 #L Mean Platelet Volume 11.4 H Neutrophils % 33.0 L Band Neutrophils % 18.0 H Lymphocytes % 30.0 Monocytes % 18.0 H Eosinophils % Basophils % 1.0 Neutrophils # 1.3 L Lymphocytes # 1.2 Monocytes # 0.7 Eosinophils # Basophils # 0.0 Sodium Level 145 H Potassium Level 4.8 Chloride Level 113 H Carbon Dioxide Level 22 Anion Gap 15 Blood Urea Nitrogen 23 H Creatinine 1.46 H Glucose Level 142 Calcium Level 8.7 Phosphorus Level 3.3 Magnesium Level 2.5 Creatine Kinase 23 Creatine Kinase Index 1.0 Creatinine Kinase MB (Mass) < 0.22 Troponin I < 0.012 Medications Medications Current Medications Sodium Chloride (NS) 1,000 ml @ 60 mls/hr [id number] IV Last administered on 10/19 02:13; Admin Dose 60 MLS/HR; Start 10/17/16 at 16:40 Ondansetron HCl (Zofran Inj) 4 mg Q6H PRN IV NAUSEA AND/OR VOMITING Last administered on 10/18/16 20:57; Admin Dose 4 MG; Start 10/17/16 at 17:00 Acetaminophen (Tylenol Tab) 650 mg Q6H PRN PO PAIN LEVEL 1-3 OR FEVER Last administered on 10/17/16 19:22; Admin Dose 650 MG; Start 10/17/16 at 17:00 Acetaminophen/ Hydrocodone Bitart ([place] (5/325)) 2 tab Q6H PRN PO SEVERE PAIN LEVEL 7-10; Start 10/17/16 at 17:00 Hydromorphone HCl (Dilaudid) 0.5 mg Q4H PRN IV SEVERE PAIN LEVEL 7-10 Last administered on 10/18/16 18:30; Admin Dose 0.5 MG; Start 10/17/16 at 17:00 Magnesium Hydroxide (Milk Of Mag) 30 ml DAILY PRN PO CONSTIPATION; Start at 17:00 Bisacodyl (Dulcolax) 5 mg DAILY PRN PO CONSTIPATION; Start 10/17/16 at 17:00 Famotidine (Pepcid) 20 mg Q12 PO Last administered on 10/19/16 08:26; Admin Dose 20 MG; Start 10/17/16 at 21:00 Heparin Sodium (Porcine) (Heparin (5000 Units/0.5 ml)) 5,000 unit Q12 SC Last administered on 10/18/16 20:51; Admin Dose 5,000 UNIT; Start 10/17/16 at 21:00 Amlodipine Besylate (Norvasc) 5 mg DAILY PO Last administered on 10/19/16 08: 26; Admin Dose 5 MG; Start 10/18/16 at 09:00 Aspirin (Halfprin) 81 mg DAILY PO Last administered on 10/19/16 08:26; Admin Dose 81 MG; Start 10/18/16 at 09:00 Atorvastatin Calcium (Lipitor) 40 mg QHS PO Last administered on 10/18/16 20: 50; Admin Dose 40 MG; Start 10/17/16 at 21:00 Sertraline HCl (Zoloft) 100 mg DAILY PO Last administered on 10/19/16 08:31; Admin Dose 100 MG; Start 10/18/16 at 09:00 Hydralazine HCl (Apresoline) 10 mg Q6H PRN IV SBP>160; Start 10/17/16 at 17:00 Polyethylene Glycol 17 gm 17 gm BID PO Last administered on 10/18/16 20:51; Admin Dose 17 GM; Start 10/17/16 at 21:00 Ceftriaxone Sodium (Rocephin) 50 ml @ 100 mls/hr Q24H IVPB Last administered on 10/19/16 10:45; Admin Dose 100 MLS/HR; Start 10/18/16 at 10:30 Lorazepam (Ativan) 0.5 mg Q8H PRN PO ANXIETY; Start 10/18/16 at 15:30 PATTI RILEY Oct 19, 2016 11:25
--- NOTE | 2016-10-19 12:04 | PN ---
DATE: 10/19/2016 SUBJECTIVE: The patient has abdominal pain. He does have metastatic prostate cancer and he has bee n on chemotherapy. The patient also is going to have a colonoscopy today. OBJECTIVE: VITAL SIGNS: His temperature is 98.9, pulse is 96, respirations 18, blood pressure 116/57. ABDOMEN: He does have some tenderness, but no exquisite area. LABORATORY DATA: His CBC shows a white count of 4.0. Initially his white count had come down to 1. 6 yesterday. Hemoglobin is 9.9, hematocrit 29.9. BUN is 23, creatinine 1.46, sodium 145, potassium 4.8, chloride 113, CO2 of 22. His PSA is 362.0. The urine culture shows mixed gram-positive organ ism and this is most likely contamination because it is less than 10,000 colony/mL and it is mixed p ositive. IMPRESSION: Metastatic prostate cancer. The patient is on chemotherapy and the patient has abdomin al pain. RECOMMENDATION: I did talk to Anthony Crawford, the nurse practitioner, and he already ordered an on cology consultation with Dr. Johnson, and that may help see if there is any relation between the chemo therapy that he had and the abdominal pain. He also does have the leukopenia. Dictated By: ANGEL MELTON/RICHA Conf#: [id number] DID#: [id number]
--- NOTE | 2016-10-19 15:45 | CONS ---
Date/Time of Note Date/Time of Note DATE: 10/19/16 TIME: 15:36 Assessment/Plan Assessment/Plan Additional Assessment/Plan Cancer of the prostate Metastases to bone Pancytopenia New onset of abdominal pain Right ureteral obstruction We will switch him to oral medication Hold nonsteroidal anti-inflammatory medication DC [place] Changed to oral Dilaudid Consultation Date/Type/Reason Admit Date/Time Oct 18, 2016 at 10:21 Type of Consultation: Pain mangement Constitutional: improved, no complaints, No chills, No diaphoresis, No disoriented, No febrile, No other, No poor po, No requiring IVF, No requiring O2 Eyes: no complaints, No discharge, No other, No pain, No redness, No visual change ENT: no complaints, No bleeding, No congestion, No discharge, No dysphagia, No other, No pain, No sore throat Respiratory: no complaints, No cough, No other, No pain, No pleuritic pain, No shortness of breath, No sputum, No wheezing Cardiovascular: no complaints, No chest pain, No edema, No lightheadedness, No orthopenea, No other, No palpitations, No paroxysmal nocturnal dyspnea Gastrointestinal: pain, No blood, No constipation, No decreased appetite, No diarrhea, No flatus, No nausea, No no complaints, No other, No passing stool, No vomiting Genitourinary: no complaints, No bleeding, No discharge, No dysuria, No flank pain, No hematuria, No other Musculoskeletal: back pain, bone/joint pain Skin: no complaints, No bruising, No erythema, No laceration, No other, No pruritis, No rash, No skin lesions Neurologic: no complaints, No confusion, No dizziness, No focal-weakness, No headache, No other, No seizure, No syncope Endocrine: no complaints, No dry skin, No other, No polydypsia, No polyuria, No temp intolerance Lymphatic: no complaints, No adenopathy, No lymphadema, No other, No tender nodes Psychological: nl mood/affect Immunologic: no complaints, other (Pancytopenia) Past Medical History Medical History: cancer, coronary artery disease, hypertension, renal disease, other Past Surgical History Past Surgical Hx: coronary bypass surgery Family History Significant Family History: no pertinent family hx Social History Alcohol Use: occasionally Smoking Status: Former smoker Exam/Review of Systems Vital Signs Vitals Vital Signs Date Time Temp Pulse Resp B/P Pulse Ox O2 Delivery O2 Flow Rate FiO2 10/19/16 08:04 98.9 96 18 116/57 99 10/17/16 16:50 Room Air Intake and Output 10/18/16 10/18/16 10/19/16 15:00 23:00 07:00 Intake Total 50 ml 2155 ml 780 ml Output Total 520 ml Balance 50 ml 2155 ml 260 ml Exam Constitutional: alert, oriented, well developed Psych: nl mood/affect, no complaints Head: atraumatic, normocephalic Neck: non-tender, supple Respiratory: clear to auscultation, normal air movement Cardiovascular: nl pulses, regular rate and rhythm Gastrointestinal: nl liver, spleen, non-tender, soft Extremities: No calf tenderness, No clubbing, No cyanosis, No edema, No normal pulses, No other, No palpable cord, No pitting pedal edema, No tenderness Neurological: [employer] CUTTER II-XII intact, nl mental status, nl speech, nl strength Results Result Diagram: 10/19/1643910/19/16 0440 Results 24 hrs Laboratory Tests Test 10/19/16 04:40 White Blood Count 4.0 #L Red Blood Count 3.23 L Hemoglobin 9.9 L Hematocrit 29.9 L Mean Corpuscular Volume 92.6 Mean Corpuscular Hemoglobin 30.7 Mean Corpuscular Hemoglobin Concent 33.1 Red Cell Distribution Width 14.9 H Platelet Count 137 #L Mean Platelet Volume 11.4 H Neutrophils % 33.0 L Band Neutrophils % 18.0 H Lymphocytes % 30.0 Monocytes % 18.0 H Eosinophils % Basophils % 1.0 Neutrophils # 1.3 L Lymphocytes # 1.2 Monocytes # 0.7 Eosinophils # Basophils # 0.0 Sodium Level 145 H Potassium Level 4.8 Chloride Level 113 H Carbon Dioxide Level 22 Anion Gap 15 Blood Urea Nitrogen 23 H Creatinine 1.46 H Glucose Level 142 Calcium Level 8.7 Phosphorus Level 3.3 Magnesium Level 2.5 Creatine Kinase 23 Creatine Kinase Index 1.0 Creatinine Kinase MB (Mass) < 0.22 Troponin I < 0.012 Medications Medications Current Medications Sodium Chloride (NS) 1,000 ml @ 60 mls/hr [id number] IV Last administered on 10/19t 02:13; Admin Dose 60 MLS/HR; Start 10/17/16 at 16:40 Ondansetron HCl (Zofran Inj) 4 mg Q6H PRN IV NAUSEA AND/OR VOMITING Last administered on 10/18/16 20:57; Admin Dose 4 MG; Start 10/17/16 at 17:00 Acetaminophen (Tylenol Tab) 650 mg Q6H PRN PO PAIN LEVEL 1-3 OR FEVER Last administered on 10/17/16 19:22; Admin Dose 650 MG; Start 10/17/16 at 17:00 Acetaminophen/ Hydrocodone Bitart ([place] (5/325)) 2 tab Q6H PRN PO SEVERE PAIN LEVEL 7-10; Start 10/17/16 at 17:00 Hydromorphone HCl (Dilaudid) 0.5 mg Q4H PRN IV SEVERE PAIN LEVEL 7-10 Last administered on 10/18/16 18:30; Admin Dose 0.5 MG; Start 10/17/16 at 17:00 Magnesium Hydroxide (Milk Of Mag) 30 ml DAILY PRN PO CONSTIPATION; Start at 17:00 Bisacodyl (Dulcolax) 5 mg DAILY PRN PO CONSTIPATION; Start 10/17/16 at 17:00 Famotidine (Pepcid) 20 mg Q12 PO Last administered on 10/19/16 08:26; Admin Dose 20 MG; Start 10/17/16 at 21:00 Heparin Sodium (Porcine) (Heparin (5000 Units/0.5 ml)) 5,000 unit Q12 SC Last administered on 10/18/16 20:51; Admin Dose 5,000 UNIT; Start 10/17/16 at 21:00 Amlodipine Besylate (Norvasc) 5 mg DAILY PO Last administered on 10/19/16 08: 26; Admin Dose 5 MG; Start 10/18/16 at 09:00 Aspirin (Halfprin) 81 mg DAILY PO Last administered on 10/19/16 08:26; Admin Dose 81 MG; Start 10/18/16 at 09:00 Atorvastatin Calcium (Lipitor) 40 mg QHS PO Last administered on 10/18/16 20: 50; Admin Dose 40 MG; Start 10/17/16 at 21:00 Sertraline HCl (Zoloft) 100 mg DAILY PO Last administered on 10/19/16 08:31; Admin Dose 100 MG; Start 10/18/16 at 09:00 Hydralazine HCl (Apresoline) 10 mg Q6H PRN IV SBP>160; Start 10/17/16 at 17:00 Polyethylene Glycol 17 gm 17 gm BID PO Last administered on 10/18/16 20:51; Admin Dose 17 GM; Start 10/17/16 at 21:00 Ceftriaxone Sodium (Rocephin) 50 ml @ 100 mls/hr Q24H IVPB Last administered on 10/19/16 10:45; Admin Dose 100 MLS/HR; Start 10/18/16 at 10:30 Lorazepam (Ativan) 0.5 mg Q8H PRN PO ANXIETY; Start 10/18/16 at 15:30 ROBERTA JACOBO Oct 19, 2016 15:45
--- NOTE | 2016-10-19 15:49 | CONS ---
Date/Time of Note Date/Time of Note DATE: 10/19/16 TIME: 15:48 Assessment/Plan Assessment/Plan Additional Assessment/Plan We will contact Dr. Green concerning the last time patient received [place] Consultation Date/Type/Reason Admit Date/Time Oct 18, 2016 at 10:21 Initial Consult Date 10/18/16 Type of Consultation: Pain mangement Referring Provider: ANDRESSA JERRY DIE MECHANIC Exam/Review of Systems Vital Signs Vitals Vital Signs Date Time Temp Pulse Resp B/P Pulse Ox O2 Delivery O2 Flow Rate FiO2 10/19/16 08:04 98.9 96 18 116/57 99 10/17/16 16:50 Room Air Intake and Output 10/18/16 10/18/16 10/19/16 15:00 23:00 07:00 Intake Total 50 ml 2155 ml 780 ml Output Total 520 ml Balance 50 ml 2155 ml 260 ml Results Result Diagram: 10/19/16 0440 10/19/16 0440 Results 24 hrs Laboratory Tests Test 10/19/16 04:40 White Blood Count 4.0 #L Red Blood Count 3.23 L Hemoglobin 9.9 L Hematocrit 29.9 L Mean Corpuscular Volume 92.6 Mean Corpuscular Hemoglobin 30.7 Mean Corpuscular Hemoglobin Concent 33.1 Red Cell Distribution Width 14.9 H Platelet Count 137 #L Mean Platelet Volume 11.4 H Neutrophils % 33.0 L Band Neutrophils % 18.0 H Lymphocytes % 30.0 Monocytes % 18.0 H Eosinophils % Basophils % 1.0 Neutrophils # 1.3 L Lymphocytes # 1.2 Monocytes # 0.7 Eosinophils # Basophils # 0.0 Sodium Level 145 H Potassium Level 4.8 Chloride Level 113 H Carbon Dioxide Level 22 Anion Gap 15 Blood Urea Nitrogen 23 H Creatinine 1.46 H Glucose Level 142 Calcium Level 8.7 Phosphorus Level 3.3 Magnesium Level 2.5 Creatine Kinase 23 Creatine Kinase Index 1.0 Creatinine Kinase MB (Mass) < 0.22 Troponin I < 0.012 Medications Medications Current Medications Sodium Chloride (NS) 1,000 ml @ 60 mls/hr [id number] IV Last administered on 10/19t 02:13; Admin Dose 60 MLS/HR; Start 10/17/16 at 16:40 Ondansetron HCl (Zofran Inj) 4 mg Q6H PRN IV NAUSEA AND/OR VOMITING Last administered on 10/18/16 20:57; Admin Dose 4 MG; Start 10/17/16 at 17:00 Acetaminophen (Tylenol Tab) 650 mg Q6H PRN PO PAIN LEVEL 1-3 OR FEVER Last administered on 10/17/16 19:22; Admin Dose 650 MG; Start 10/17/16 at 17:00 Acetaminophen/ Hydrocodone Bitart ([place] (5/325)) 2 tab Q6H PRN PO SEVERE PAIN LEVEL 7-10; Start 10/17/16 at 17:00 Hydromorphone HCl (Dilaudid) 0.5 mg Q4H PRN IV SEVERE PAIN LEVEL 7-10 Last administered on 10/18/16 18:30; Admin Dose 0.5 MG; Start 10/17/16 at 17:00 Magnesium Hydroxide (Milk Of Mag) 30 ml DAILY PRN PO CONSTIPATION; Start at 17:00 Bisacodyl (Dulcolax) 5 mg DAILY PRN PO CONSTIPATION; Start 10/17/16 at 17:00 Famotidine (Pepcid) 20 mg Q12 PO Last administered on 10/19/16 08:26; Admin Dose 20 MG; Start 10/17/16 at 21:00 Heparin Sodium (Porcine) (Heparin (5000 Units/0.5 ml)) 5,000 unit Q12 SC Last administered on 10/18/16 20:51; Admin Dose 5,000 UNIT; Start 10/17/16 at 21:00 Amlodipine Besylate (Norvasc) 5 mg DAILY PO Last administered on 10/19/16 08: 26; Admin Dose 5 MG; Start 10/18/16 at 09:00 Aspirin (Halfprin) 81 mg DAILY PO Last administered on 10/19/16 08:26; Admin Dose 81 MG; Start 10/18/16 at 09:00 Atorvastatin Calcium (Lipitor) 40 mg QHS PO Last administered on 10/18/16 20: 50; Admin Dose 40 MG; Start 10/17/16 at 21:00 Sertraline HCl (Zoloft) 100 mg DAILY PO Last administered on 10/19/16 08:31; Admin Dose 100 MG; Start 10/18/16 at 09:00 Hydralazine HCl (Apresoline) 10 mg Q6H PRN IV SBP>160; Start 10/17/16 at 17:00 Polyethylene Glycol 17 gm 17 gm BID PO Last administered on 10/18/16 20:51; Admin Dose 17 GM; Start 10/17/16 at 21:00 Ceftriaxone Sodium (Rocephin) 50 ml @ 100 mls/hr Q24H IVPB Last administered on 10/19/16 10:45; Admin Dose 100 MLS/HR; Start 10/18/16 at 10:30 Lorazepam (Ativan) 0.5 mg Q8H PRN PO ANXIETY; Start 10/18/16 at 15:30 ROBERTA JACOBO Oct 19, 2016 15:49
[2016-10-19] MEDS ORDERED: traMADol 50 MG TAB PO PRN (16:00)
--- NOTE | 2016-10-19 17:11 | CONS ---
Date/Time of Note Date/Time of Note DATE: 10/19/16 TIME: 16:41 Assessment/Plan Assessment/Plan Chief Complaint/Hosp Course The patient is a 76 year old male with a history of hypertension, dyslipidemia, CAD s/p stenting, and metastatic prostate cancer on chemotherapy with taxotere with Dr. Moe Green, phone number [phone]. [address] Green, he had previously received taxotere/carboplatin with good response and was monitored off chemotherapy however was restarted last week on first cycle of taxotere when PSA trenton from 200 to 400 and symptoms worsened. Per Dr. Green he has had long-standing john disease in the abdomen related to his prostate cancer. He did have abdominal pain when seen by Dr. Green, preceding the chemotherapy. He also received neulasta after taxotere. # Metastatic prostate cancer, followed by Dr. Moe Green, with recent progression of disease and restarted on IV chemotherapy with taxotere last week. Most recent PSA 362 on 10/17/16. Patient will follow-up with Dr. Green once discharged and continue taxotere as an outpatient. Given that he developed febrile neutropenia despite neulasta, may consider neupogen with next chemotherapy but will defer to Dr. Green. CT also showed ill-defined sclerosis L3 vertebral body. This is indeterminate for metastatic disease. Would recommend outpatient follow-up and bisphosphonate if confirmed to have bony metastatic disease. # Abdominal pain, unclear etiology, possibly related to worsening disease. Unlikely to be related to chemotherapy as preceded first cycle of chemotherapy last week. - CT A/P without contrast showed retrocrural, retroperitoneal and peripancreatic adenopathy. Question metastatic disease versus lymphoma. These nodes are amendable to CT guided biopsy if clinically indicated. Discussed with Dr. Green and he has had longstanding john disease related to prostate cancer, therefore biopsy unnecessary at this time. - Question mass tail of pancreas on CT, however MRI abdomen showed no definite mass is seen in the region of the tail of the pancreas. There is right retrocrural, portacaval and retroperitoneal adenopathy in left periaortic, retrocaval, aortocaval regions consistent with metastatic disease. Less than 1 cm short axis lymph nodes are seen in the gastrohepatic ligament and peripancreatic regions as well and metastases is suspected. There is mild to moderate right hydronephrosis which appears to be secondary to the adenopathy. 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 - Plan for EGD/colonoscopy today per GI # Renal insufficiency with mild to moderate right hydroureter nephrosis with ureteral obstruction superior pelvis. - Appreciate urology recs, monitor for now per Dr. Piña, continue IV fluids # Neutropenic fever, secondary to taxotere last week, with laura 7-10 days from chemotherapy - Patient received a single dose of neupogen 300 mcg on 10/17/16, now no longer neutropenic. Continue to monitor. - Given that he developed febrile neutropenia despite neulasta, may consider neupogen with next chemotherapy but will defer to Dr. Green. - Last fever 10/17/16 at 1922, continue to monitor. - Continue antibiotics per primary team for now, follow-up cultures, UCx showed <10K mixed gram positive organisms, BCx neg so far # Normocytic anemia, iron panel shows iron 41, TIBC 254, %sat 16, ferritin 277 more consistent with anemia of chronic inflammation, TSH normal at 1.050, will obtain B12/folate, LDH, haptoglobin and retic count with a.m. labs Problems: Consultation Date/Type/Reason Admit Date/Time Oct 18, 2016 at 10:21 Date of Consultation: Oct 19, 2016 Type of Consultation: Oncology Hx of Present Illness The patient is a 76 year old male with a history of hypertension, dyslipidemia, CAD s/p stenting, and metastatic prostate cancer on chemotherapy with taxotere with Dr. Moe Green, phone number [phone]. [address] Green, he had previously received taxotere/carboplatin with good response and was monitored off chemotherapy however was restarted last week on first cycle of taxotere when PSA [place] and symptoms worsened. Per Dr. Green he has had long-standing john disease in the abdomen related to his prostate cancer. He did have abdominal pain when seen by Dr. Green, preceding the chemotherapy. He also received neulasta after taxotere. Per chart review, the patient has a history of hematuria 3 weeks ago where he sought consultation at [facility]. He presented in our emergency room because of severe abdominal pain that he states preceded chemotherapy. Presently, the patient denies abdominal pain but just reports pressure in his abdomen. Constitutional: improved, no complaints, No chills, No diaphoresis, No disoriented, No febrile, No other, No poor po, No requiring IVF, No requiring O2 Eyes: no complaints, No discharge, No other, No pain, No redness, No visual change ENT: no complaints, No bleeding, No congestion, No discharge, No dysphagia, No other, No pain, No sore throat Respiratory: no complaints, No cough, No other, No pain, No pleuritic pain, No shortness of breath, No sputum, No wheezing Cardiovascular: no complaints, No chest pain, No edema, No lightheadedness, No orthopenea, No other, No palpitations, No paroxysmal nocturnal dyspnea Gastrointestinal: pain, No blood, No constipation, No decreased appetite, No diarrhea, No flatus, No nausea, No no complaints, No other, No passing stool, No vomiting Genitourinary: no complaints, No bleeding, No discharge, No dysuria, No flank pain, No hematuria, No other Musculoskeletal: back pain, bone/joint pain Skin: no complaints, No bruising, No erythema, No laceration, No other, No pruritis, No rash, No skin lesions Neurologic: no complaints, No confusion, No dizziness, No focal-weakness, No headache, No other, No seizure, No syncope Endocrine: no complaints, No dry skin, No other, No polydypsia, No polyuria, No temp intolerance Lymphatic: no complaints, No adenopathy, No lymphadema, No other, No tender nodes Psychological: nl mood/affect, no complaints Immunologic: no complaints, other (Pancytopenia) Past Medical History Past Medical Hx: coronary artery disease, hypertension, renal disease, other Past Surgical History Past Surgical Hx: coronary bypass surgery Family History Significant Family History: no pertinent family hx Social History Smoking Status: Former smoker Medical History: cancer, coronary artery disease, hypertension, renal disease, other Past Surgical History Past Surgical Hx: coronary bypass surgery Family History Significant Family History: no pertinent family hx Social History Alcohol Use: occasionally Smoking Status: Former smoker Exam/Review of Systems Vital Signs Vitals Vital Signs Date Time Temp Pulse Resp B/P Pulse Ox O2 Delivery O2 Flow Rate FiO2 10/19/16 08:04 98.9 96 18 116/57 99 10/17/16 16:50 Room Air Intake and Output 10/18/16 10/18/16 10/19/16 15:00 23:00 07:00 Intake Total 50 ml 2155 ml 780 ml Output Total 520 ml Balance 50 ml 2155 ml 260 ml Exam Constitutional: alert, oriented Head: normocephalic Eyes: nl conjunctiva Neck: supple Respiratory: clear to auscultation Cardiovascular: regular rate and rhythm Gastrointestinal: non-tender, soft Musculoskeletal: nl extremities to inspection Neurological: [employer] TE[employer]ER II-XII intact Results Result Diagram: 10/19/16 0440 10/19/16 0440 Results 24 hrs Laboratory Tests Test 10/19/16 04:40 White Blood Count 4.0 #L Red Blood Count 3.23 L Hemoglobin 9.9 L Hematocrit 29.9 L Mean Corpuscular Volume 92.6 Mean Corpuscular Hemoglobin 30.7 Mean Corpuscular Hemoglobin Concent 33.1 Red Cell Distribution Width 14.9 H Platelet Count 137 #L Mean Platelet Volume 11.4 H Neutrophils % 33.0 L Band Neutrophils % 18.0 H Lymphocytes % 30.0 Monocytes % 18.0 H Eosinophils % Basophils % 1.0 Neutrophils # 1.3 L Lymphocytes # 1.2 Monocytes # 0.7 Eosinophils # Basophils # 0.0 Sodium Level 145 H Potassium Level 4.8 Chloride Level 113 H Carbon Dioxide Level 22 Anion Gap 15 Blood Urea Nitrogen 23 H Creatinine 1.46 H Glucose Level 142 Calcium Level 8.7 Phosphorus Level 3.3 Magnesium Level 2.5 Creatine Kinase 23 Creatine Kinase Index 1.0 Creatinine Kinase MB (Mass) < 0.22 Troponin I < 0.012 Medications Medications Current Medications Sodium Chloride (NS) 1,000 ml @ 60 mls/hr [id number] IV Last administered on 10/19 02:13; Admin Dose 60 MLS/HR; Start 10/17/16 at 16:40 Ondansetron HCl (Zofran Inj) 4 mg Q6H PRN IV NAUSEA AND/OR VOMITING Last administered on 10/18/16 20:57; Admin Dose 4 MG; Start 10/17/16 at 17:00 Acetaminophen (Tylenol Tab) 650 mg Q6H PRN PO PAIN LEVEL 1-3 OR FEVER Last administered on 10/17/16 19:22; Admin Dose 650 MG; Start 10/17/16 at 17:00 Hydromorphone HCl (Dilaudid) 0.5 mg Q4H PRN IV SEVERE PAIN LEVEL 7-10 Last administered on 10/18/16 18:30; Admin Dose 0.5 MG; Start 10/17/16 at 17:00 Magnesium Hydroxide (Milk Of Mag) 30 ml DAILY PRN PO CONSTIPATION; Start at 17:00 Bisacodyl (Dulcolax) 5 mg DAILY PRN PO CONSTIPATION; Start 10/17/16 at 17:00 Famotidine (Pepcid) 20 mg Q12 PO Last administered on 10/19/16 08:26; Admin Dose 20 MG; Start 10/17/16 at 21:00 Heparin Sodium (Porcine) (Heparin (5000 Units/0.5 ml)) 5,000 unit Q12 SC Last administered on 10/18/16 20:51; Admin Dose 5,000 UNIT; Start 10/17/16 at 21:00 Amlodipine Besylate (Norvasc) 5 mg DAILY PO Last administered on 10/19/16 08: 26; Admin Dose 5 MG; Start 10/18/16 at 09:00 Aspirin (Halfprin) 81 mg DAILY PO Last administered on 10/19/16 08:26; Admin Dose 81 MG; Start 10/18/16 at 09:00 Atorvastatin Calcium (Lipitor) 40 mg QHS PO Last administered on 10/18/16 20: 50; Admin Dose 40 MG; Start 10/17/16 at 21:00 Sertraline HCl (Zoloft) 100 mg DAILY PO Last administered on 10/19/16 08:31; Admin Dose 100 MG; Start 10/18/16 at 09:00 Hydralazine HCl (Apresoline) 10 mg Q6H PRN IV SBP>160; Start 10/17/16 at 17:00 Polyethylene Glycol 17 gm 17 gm BID PO Last administered on 10/18/16 20:51; Admin Dose 17 GM; Start 10/17/16 at 21:00 Ceftriaxone Sodium (Rocephin) 50 ml @ 100 mls/hr Q24H IVPB Last administered on 10/19/16 10:45; Admin Dose 100 MLS/HR; Start 10/18/16 at 10:30 Tramadol HCl (Ultram) 100 mg Q6H PRN PO PAIN; Start 10/19/16 at 16:00 ZEV QUIROGA MD Oct 19, 2016 16:51
[2016-10-19] MEDS ORDERED: PROPOFOL 20 ML ONE (17:22)
[2016-10-19] MEDS ORDERED: MIDAZOLAM 1 MG/ML 2 ML INJ ONE (17:22)
[2016-10-19] MEDS ORDERED: LIDOCAINE 2% (SDV) 5 ML INJ ONE (17:22)
[2016-10-19 17:24] VITALS: BP 142/64; PULSE 84; RESP 21
[2016-10-19 17:58] VITALS: BP 122/60; PULSE 82; RESP 24
[2016-10-19] MEDS: PANTOPRAZOLE 40 MG INJ IV SCH (18:39)
[2016-10-19 20:45] VITALS: BP 146/67; RESP 18
[2016-10-19] MEDS: ATORVASTATIN 40 MG TAB PO SCH (21:12)
--- NOTE | 2016-10-19 22:11 | GILP ---
DATE OF PROCEDURE: NAME OF PROCEDURE: Esophagogastroduodenoscopy with biopsies. SURGEON: Julio Mullins MD PREMEDICATION: Monitored anesthesia care by anesthesiologist. INSTRUMENT USED: Olympus panendoscope. TECHNIQUE: After informed consent, with the patient/relatives understanding the procedure, its indic ations, potential risks, and complications, including but not limited to: allergic reaction, bleedin g, perforation or infection, and after all pertinent questions were answered to the patient's satisf action, the patient/relatives signed witnessed informed consent. Following this, premedication was administered slowly IV push under careful cardiovascular and respi ratory monitoring with pulse oximetry, automatic blood pressure and lunchroom monitor. Once the sedative effect was achieved the patient was place in the left lateral decubitus, the panen doscope was introduced and advanced under visual control. Careful examination of the upper gastrointestinal tract, both on insertion as well as withdrawal of the instrument disclosed the following findings: ESOPHAGUS: The distal esophagus shows significant erythema, edema, and erosions of the mucosa. A sm all hiatal hernia is present. STOMACH: Upon entrance to the stomach, air was insufflated, the gastric mckeon distended normally. T he mucosa of the fundus, body, and antrum of the stomach shows erythema and edema of a moderate degr ee. Biopsies were obtained to rule out H. pylori infection. PYLORUS: The pylorus appears patent and within normal limits, with no evidence of gastric outlet ob struction. DUODENUM: The duodenal mucosa was carefully examined in the duodenal bulb as well as the second por tion of the duodenum and appears unremarkable with no evidence of duodenitis, ulcer, or neoplasm. The instrument was then withdrawn, the patient tolerated the procedure well and was transfer out of the endoscopy suite awake, and in good condition to continue recovery under observation IMPRESSION: 1. Erosive esophagitis. 2. Small hiatal hernia. 3. Gastritis, rule out Helicobacter pylori infection, biopsies obtained. PLAN: The patient will be treated with PPI b.i.d. Pathology will be reviewed as soon as available. Further recommendation will depend on the findings as well as review of pathology. Dictated By: JULIO MULLINS MS/RICHA Conf#: [id number] DID#: [id number] CC: DARRELL ORTIZ MD; JULIO MULLINS;*EndCC*
[2016-10-19] MEDS ORDERED: ZOLPIDEM 5 MG TAB PO PRN (23:00)
[2016-10-20] MEDS: PANTOPRAZOLE 40 MG INJ IV SCH (05:33)
--- NOTE | 2016-10-20 05:58 | GILP ---
DATE OF PROCEDURE: 10/19/2016 PROCEDURE: Colonoscopy with polyp ablation. BRIEF HISTORY AND INDICATION: The patient is being evaluated for abdominal pain and anemia. PREMEDICATION: Monitored anesthesia care by anesthesiologist. INSTRUMENTATION: Video colonoscope. PREPARATION: Adequate. TECHNIQUE: After informed consent, with the patient/relatives understanding the procedure, its indic ations potential risks and complications, including but not limited to: allergic reaction, bleeding, perforation, infection, missed lesions and after all pertinent questions were answered to the patie nt's satisfaction, the patient/relatives signed the witnessed informed consent. Following this, premedication was administered slowly IV push by under careful cardiovascular and re spiratory monitoring with pulse oximetry, automatic blood pressure and phototypesetting equipment monitor. Once the sedativ e effect was achieved, the patient was placed in the left lateral decubitus position, digital rectal examination was performed. The colonoscope was then introduced and advanced under visual control th roughout all segments of the colon including: the rectum, sigmoid, descending colon, splenic flexure , transverse colon, hepatic flexure, ascending colon and finally reaching the cecum which was clearl y identified by transillumination, finger indentation and the ileocecal valve. Careful examination o f the mucosa of the lower gastrointestinal tract both on insertion as well as withdrawal of the inst rument disclosed the following findings: Rectal Examination: No evidence of perirectal disease, no masses. Colonic Mucosa: The colonic mucosa is unremarkable with exception of a 4 mm polyp in the ascending colon which was completely ablated with biopsy forceps. The ileocecal valve was clearly identified and appears unremarkable. The instrument was withdrawn reexamining the mucosa in detail. No additi onal abnormalities are noted with exception of moderate to large internal hemorrhoids. IMPRESSION: 1. A 4 mm polyp in the ascending colon, ablated. 2. Moderate to large internal hemorrhoids. PLAN: The patient will be followed up on present regimen. Diet will be advanced as tolerated. Pat hology will be reviewed as soon as available. The patient will require annual Hemoccult stool testi ng and surveillance colonoscopy in 5 years. Dictated By: JULIO JASSO Conf#: [id number] DID#: [id number]
[2016-10-20 07:17] LABS: ADD SCAN DIFF NO
[2016-10-20 07:20] LABS: ABNORMAL IP MESSAGE 1; HEMATOCRIT 26.1 % (42.0-52.0); HEMOGLOBIN 8.4 g/dl (14.0-18.0); MEAN CORPUSCULAR HEMOGLOBIN 30.3 pg (29.0-33.0); MEAN CORPUSCULAR HGB CONC 32.2 g/dl (32.0-37.0); MEAN CORPUSCULAR VOLUME 94.2 fl (82.0-101.0); MEAN PLATELET VOLUME 11.7 fl (7.4-10.4); PLATELET COUNT 124 10^3/UL (140-415); RED BLOOD COUNT 2.77 10^6/ul (4.70-6.10); RED CELL DISTRIBUTION WIDTH 15.2 % (11.5-14.5); WHITE BLOOD COUNT 7.2 10^3/ul (4.8-10.8)
[2016-10-20 07:55] LABS: RETICULOCYTE COUNT % 0.5 % (0.5-1.5)
[2016-10-20 08:00] VITALS: BP 166/79; RESP 18
[2016-10-20 08:05] LABS: CALCIUM 8.4 mg/dl (8.4-10.2); CREATININE 1.34 mg/dl (0.61-1.24); POTASSIUM 4.6 mmol/L (3.5-5.1)
[2016-10-20 08:12] LABS: LACTATE DEHYDROGENASE 834 IU/L (313-618)
[2016-10-20] MEDS: SERTRALINE 100 MG TAB PO SCH (08:24)
[2016-10-20] MEDS: AMLODIPINE 5 MG TAB PO SCH (08:24)
[2016-10-20] MEDS: ASPIRIN (EC) 81 MG TAB PO SCH (08:24)
[2016-10-20] MEDS: HEPARIN 5,000 UNIT/0.5 ML VIAL SC SCH (08:24)
[2016-10-20] MEDS: POLYETHYLENE GLYCOL 17 GM PACKET PO SCH (08:24)
[2016-10-20 09:06] LABS: LYMPHOCYTES # 1.4 10^3/ul (0.8-2.9); MONOCYTE # 0.9 10^3/ul (0.3-0.9); NEUTROPHIL # 3.4 10^3/ul (1.6-7.5)
--- NOTE | 2016-10-20 09:15 | CONS ---
Date/Time of Note Date/Time of Note DATE: 10/20/16 TIME: 09:14 Assessment/Plan Assessment/Plan Chief Complaint/Hosp Course The patient is a 76 year old male with a history of hypertension, dyslipidemia, CAD s/p stenting, and metastatic prostate cancer on chemotherapy with taxotere with Dr. Moe Green, phone number [phone]. [address] Green, he had previously received taxotere/carboplatin with good response and was monitored off chemotherapy however was restarted last week on first cycle of taxotere when PSA trenton from 200 to 400 and symptoms worsened. Per Dr. Green he has had long-standing john disease in the abdomen related to his prostate cancer. He did have abdominal pain when seen by Dr. Green, preceding the chemotherapy. He also received neulasta after taxotere. # Metastatic prostate cancer, followed by Dr. Moe Green, with recent progression of disease and restarted on IV chemotherapy with taxotere last week. Most recent PSA 362 on 10/17/16. Patient will follow-up with Dr. Green once discharged and continue taxotere as an outpatient. Given that he developed febrile neutropenia despite neulasta, may consider neupogen with next chemotherapy but will defer to Dr. Green. CT also showed ill-defined sclerosis L3 vertebral body. This is indeterminate for metastatic disease. Would recommend outpatient follow-up and bisphosphonate if confirmed to have bony metastatic disease. # Abdominal pain, unclear etiology, possibly related to worsening disease. Unlikely to be related to chemotherapy as preceded first cycle of chemotherapy last week. - CT A/P without contrast showed retrocrural, retroperitoneal and peripancreatic adenopathy. Question metastatic disease versus lymphoma. These nodes are amendable to CT guided biopsy if clinically indicated. Discussed with Dr. Green and he has had longstanding john disease related to prostate cancer, therefore biopsy unnecessary at this time. - Question mass tail of pancreas on CT, however MRI abdomen showed no definite mass is seen in the region of the tail of the pancreas. There is right retrocrural, portacaval and retroperitoneal adenopathy in left periaortic, retrocaval, aortocaval regions consistent with metastatic disease. Less than 1 cm short axis lymph nodes are seen in the gastrohepatic ligament and peripancreatic regions as well and metastases is suspected. There is mild to moderate right hydronephrosis which appears to be secondary to the adenopathy. 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 - s/p EGD/colonoscopy 10/19/16 that revealed 4 mm polyp in ascending colon, internal hemorrhoids, erosive esophagitis and gastritis, f/u path # Renal insufficiency with mild to moderate right hydroureter nephrosis with ureteral obstruction superior pelvis. - Appreciate urology recs, monitor for now per Dr. Piña, continue IV fluids. Cr improved to 1.34 today. # Neutropenic fever, secondary to taxotere last week, with laura 7-10 days from chemotherapy. Patient afebrile. - Patient received a single dose of neupogen 300 mcg on 10/17/16, now no longer neutropenic. Continue to monitor. - Given that he developed febrile neutropenia despite neulasta, may consider neupogen with next chemotherapy but will defer to Dr. Green. - Last fever 10/17/16 at 1922, continue to monitor. - Continue antibiotics per primary team for now, follow-up cultures, UCx showed <10K mixed gram positive organisms, BCx neg so far # Normocytic anemia, iron panel shows iron 41, TIBC 254, %sat 16, ferritin 277 more consistent with anemia of chronic inflammation, TSH normal at 1.050, will obtain B12/folate. LDH elevated at 834, retic inappropriately low at 13K, pending haptoglobin. Problems: Consultation Date/Type/Reason Admit Date/Time Oct 18, 2016 at 10:21 Initial Consult Date 10/19/16 Type of Consultation: Oncology Referring Provider: ANDRESSA JERRY NP 24 HR Interval Summary Free Text/Dictation Patient denies abdominal pain at this time however notes that he still has the sensation of pain that used to be there. No other complaints. Exam/Review of Systems Vital Signs Vitals Vital Signs Date Time Temp Pulse Resp B/P Pulse Ox O2 Delivery O2 Flow Rate FiO2 10/20/16 08:00 98.3 79 18 166/79 97 10/19/16 17:58 Nasal Cannula 10/19/16 17:38 5 Intake and Output 10/19/16 10/19/16 10/20/16 15:00 23:00 07:00 Intake Total 50 ml 2180 ml 720 ml Output Total 540 ml Balance 50 ml 2180 ml 180 ml Exam Constitutional: alert, oriented Head: normocephalic Eyes: nl conjunctiva Neck: supple Respiratory: clear to auscultation Cardiovascular: regular rate and rhythm Gastrointestinal: non-tender, soft Musculoskeletal: nl extremities to inspection Neurological: BRIEF WRITER II-XII intact Results Result Diagram: 10/20/16 0555 10/20/16 0555 Results 24 hrs Laboratory Tests Test 10/20/16 05:55 White Blood Count 7.2 # Red Blood Count 2.77 L Hemoglobin 8.4 L Hematocrit 26.1 L Mean Corpuscular Volume 94.2 Mean Corpuscular Hemoglobin 30.3 Mean Corpuscular Hemoglobin Concent 32.2 Red Cell Distribution Width 15.2 H Platelet Count 124 L Mean Platelet Volume 11.7 H Neutrophils % 47.0 Band Neutrophils % 20.0 H Lymphocytes % 20.0 Monocytes % 12.0 H Eosinophils % Metamyelocytes % 1.0 H Neutrophils # 3.4 Lymphocytes # 1.4 Monocytes # 0.9 Eosinophils # Metamyelocytes # 0.1 Absolute Reticulocyte Count 0.013 L Percent Reticulocyte Count 0.5 Sodium Level 144 Potassium Level 4.6 Chloride Level 115 H Carbon Dioxide Level 22 Anion Gap 12 Blood Urea Nitrogen 23 H Creatinine 1.34 H Glucose Level 112 Calcium Level 8.4 Lactate Dehydrogenase 834 H Vitamin B12 Level Pending Folate Pending Medications Medications Current Medications Sodium Chloride (NS) 1,000 ml @ 60 mls/hr [id number] IV Last administered on 10/19 21:19; Admin Dose 60 MLS/HR; Start 10/17/16 at 16:40 Ondansetron HCl (Zofran Inj) 4 mg Q6H PRN IV NAUSEA AND/OR VOMITING Last administered on 10/18/16 20:57; Admin Dose 4 MG; Start 10/17/16 at 17:00 Acetaminophen (Tylenol Tab) 650 mg Q6H PRN PO PAIN LEVEL 1-3 OR FEVER Last administered on 10/17/16 19:22; Admin Dose 650 MG; Start 10/17/16 at 17:00 Hydromorphone HCl (Dilaudid) 0.5 mg Q4H PRN IV SEVERE PAIN LEVEL 7-10 Last administered on 10/18/16 18:30; Admin Dose 0.5 MG; Start 10/17/16 at 17:00 Magnesium Hydroxide (Milk Of Mag) 30 ml DAILY PRN PO CONSTIPATION; Start at 17:00 Bisacodyl (Dulcolax) 5 mg DAILY PRN PO CONSTIPATION; Start 10/17/16 at 17:00 Heparin Sodium (Porcine) (Heparin (5000 Units/0.5 ml)) 5,000 unit Q12 SC Last administered on 10/19/16 21:13; Admin Dose 5,000 UNIT; Start 10/17/16 at 21:00 Amlodipine Besylate (Norvasc) 5 mg DAILY PO Last administered on 10/20/16 08: 24; Admin Dose 5 MG; Start 10/18/16 at 09:00 Aspirin (Halfprin) 81 mg DAILY PO Last administered on 10/20/16 08:24; Admin Dose 81 MG; Start 10/18/16 at 09:00 Atorvastatin Calcium (Lipitor) 40 mg QHS PO Last administered on 10/19/16 21: 12; Admin Dose 40 MG; Start 10/17/16 at 21:00 Sertraline HCl (Zoloft) 100 mg DAILY PO Last administered on 10/20/16 08:24; Admin Dose 100 MG; Start 10/18/16 at 09:00 Hydralazine HCl (Apresoline) 10 mg Q6H PRN IV SBP>160; Start 10/17/16 at 17:00 Polyethylene Glycol 17 gm 17 gm BID PO Last administered on 10/18/16 20:51; Admin Dose 17 GM; Start 10/17/16 at 21:00 Ceftriaxone Sodium (Rocephin) 50 ml @ 100 mls/hr Q24H IVPB Last administered on 10/19/16 10:45; Admin Dose 100 MLS/HR; Start 10/18/16 at 10:30 Tramadol HCl (Ultram) 100 mg Q6H PRN PO PAIN; Start 10/19/16 at 16:00 Pantoprazole (Protonix Iv) 40 mg BID@06,18 IV Last administered on 10/20/16 05 :33; Admin Dose 40 MG; Start 10/19/16 at 18:00 Zolpidem Tartrate (Ambien) 5 mg ONCE PRN PO INSOMNIA Last administered on 22:55; Admin Dose 5 MG; Start 10/19/16 at 23:00; Stop 10/20/16 at 22:59 ZEV QUIROGA MD Oct 20, 2016 09:15
[2016-10-20] MEDS: CEFTRIAXONE 1 GM/50 ML (PMX) 50 ML IVPB SCH (10:56)
[2016-10-20] MEDS ORDERED: ACET500C5 PO (12:33)
--- NOTE | 2016-10-20 12:36 | DS ---
DATE OF ADMISSION: 10/18/2016 DATE OF DISCHARGE: DISCHARGE DIAGNOSES: 1. Abdominal pain, resolved. 2. History of metastatic prostate cancer, currently on chemotherapy. 3. ____, on chemotherapy. 4. History of hypertension. 5. History of coronary artery disease. 6. History of dyslipidemia. 7. Fevers resolved. 8. Possible L3 vertebral body lesion. 9. Status post ____ erosive esophagitis. 10. Status post colonoscopy showing 4 mm polyp. COURSE: This is an elderly gentleman with a history of metastatic prostate cancer on chemotherapy u nder the care of Dr. Moe Green who was brought in with complaints of abdominal pain. MRI was don e which did not how any definite mass in the area of the pancreas; however, possible metastatic lesi on in L3 vertebral body was seen. The [facility] The patient also underwent EGD and colonoscopy, and results were as mentioned above. Biopsy of the polyp was patent. Pathology report is pending at this time. The patient is at present comp letely pain-free and is adamant to go home. The patient has a follow up with Dr. Green tomorrow in his office. DISCHARGE INSTRUCTIONS: DIET: Regular, low sodium. ACTIVITY: As tolerated. FOLLOWUP: With Dr. Green tomorrow in his office and medication recon will be done. CONDITION UPON DISCHARGE: Stable. Dictated By: GAL ORO MD, MA/RICHA Conf#: [id number] DID#: [id number]
[2016-10-20 13:39] LABS: FOLATE > 20.0 ng/ml (2.8-20.0)
== END 2016-10-20 14:14 | disposition home or self-care (01) | DRG 391 ==
LOC: E/R 10:34 → PP2 14:49 → INTOOBSV 14:49 → PP2 16:40 → OBSVTOIN 10-18 10:21
PROVIDERS: ADMIT Family Medicine; ATTEND Family Medicine
PROC: 0DB68ZX Excision of Stomach, Via Natural or Artificial Opening Endoscopic, Diagnostic (ICD-10-PCS; principal; 2016-10-19 19:30)
PROC: 0DBK8ZZ Excision of Ascending Colon, Via Natural or Artificial Opening Endoscopic (ICD-10-PCS; 2016-10-19 19:30)
DX: R10.9 Unspecified abdominal pain (principal); D61.810 Antineoplastic chemotherapy induced pancytopenia; N17.9 Acute kidney failure, unspecified; C79.51 Secondary malignant neoplasm of bone; N13.1 Hydronephrosis with ureteral stricture, not elsewhere classified; C77.2 Secondary and unspecified malignant neoplasm of intra-abdominal lymph nodes; D70.1 Agranulocytosis secondary to cancer chemotherapy; E78.5 Hyperlipidemia, unspecified; I25.10 Atherosclerotic heart disease of native coronary artery without angina pectoris; C61 Malignant neoplasm of prostate; R50.81 Fever presenting with conditions classified elsewhere; K29.70 Gastritis, unspecified, without bleeding; K44.9 Diaphragmatic hernia without obstruction or gangrene; K20.8 Other esophagitis; D12.2 Benign neoplasm of ascending colon; I12.9 Hypertensive chronic kidney disease with stage 1 through stage 4 chronic kidney disease, or unspecified chronic kidney disease; N18.9 Chronic kidney disease, unspecified; Z95.5 Presence of coronary angioplasty implant and graft; Z79.82 Long term (current) use of aspirin; Z92.3 Personal history of irradiation; T45.1X5A Adverse effect of antineoplastic and immunosuppressive drugs, initial encounter
CPT/HCPCS: 36415; 71010; 74176; 74181; 80048; 80053; 80061; 81001; 82550; 82553; 82607; 82728; 82746; 83010; 83036; 83540; 83615; 83690; 83735; 84100; 84153; 84154; 84439; 84443; 84484; 85025; 85045; 87040; 87081; 87086; 88305; 88312; 93005; 96361; 96374; 96375; 99217; G0378; C9113; J0696; J1170; J1644; J2250; J2405; J7030